=== PATIENT | male | born 1965 | race Caucasian/White ===

== ENCOUNTER 2017-08-24 14:47 | Inpatient (IN) | payer OTHER ==
--- NOTE | 2017-08-24 14:57 | PDOC ---
Rapid Medical Evaluation Chief Complaint: Urinary Catheter Problem Time Seen by Provider: 08/24/17 14:55 Medical Evaluation: Allergies Allergy/AdvReac Type Severity Reaction Status Date / Time No Known Allergies Allergy Verified 08/24/17 14:52 08/24/17 14:57 I have performed a brief in-person evaluation of this patient. The patient presents with a chief complaint of: abd pain and swelling in testicles x 1 week, no f/c/n/v. H/o alcoholic cirrhosis, ascites s/p last paracentesis 1 yr ago, varices, L inguinal hernia, PFO GI: Efrain PMD: Dr Nugent Pertinent physical exam findings:+ascites w/ diffuse swelling of scrotum I have ordered the following:labs The patient will proceed to the ED for further evaluation Discharge Disposition - Diagnosis Scrotum swelling Ascites Qualifiers: Ascites type: due to alcoholic hepatitis Qualified Code(s): K70.11 - Alcoholic hepatitis with ascites - Referrals - Patient Instructions - Post Discharge Activity
--- NOTE | 2017-08-24 16:09 | PDOC ---
History of Present Illness - History of Present Illness Initial Comments: 08/24/17 15:59 50 yo M with h/o Etoh cirrhosis, dvt, ascites s/p parecentesis, esophageal varicies, patent foramen ovale, L inguinal hernia, presents with 1 month of increasing scrotal swelling, and abdominal swelling. Intermittent SOB, and Estrada. Patient reports last Etoh intake 1 month ago (1 beer). Previous U/S report ( 11/12) with small left hydrocele. Left inguinal hernia with herniating bowel loop as well as herniation of ascites through the left inguinal canal into the left scrotal sac. Both testicles appear essentially unremarkable with normal flow. Denies F/C, N/V, CP, SOB, diarrhea, constipation, BPR, urinary complaints, hematuria, weakness, lightheadedness, sensory changes. PMHx: as noted above ROS: as noted above SHx: Etoh intake 1 month ago. Denies tobacco use or IVDA. Dr. Patel <Jenaro Pal - Last Filed: 08/24/17 18:04> <Saumya Cornelius - Last Filed: 08/24/17 20:32> - General Chief Complaint: Edema Stated Complaint: fluid in scrotum Time Seen by Provider: 08/24/17 14:55 Past History - Past Medical History COPD: No Diabetes: No HTN: Yes Liver Disease: Yes (CIRRHOSIS) - Immunization History Immunization Up to Date: Yes - Suicide/Smoking/Psychosocial Hx Smoking Status: Yes Smoking History: Current every day smoker Have you smoked in the past 12 months: Yes Number of Cigarettes Smoked Daily: 10 Information on smoking cessation initiated: No 'Breaking Loose' booklet given: 07/31/11 Hx Alcohol Use: No Drug/Substance Use Hx: No Substance Use Type: Alcohol Hx Substance Use Treatment: No <Jenaro Pal - Last Filed: 08/24/17 18:04> <Saumya Cornelius - Last Filed: 08/24/17 20:32> - Past Medical History Allergies/Adverse Reactions: Allergies Allergy/AdvReac Type Severity Reaction Status Date / Time No Known Allergies Allergy Verified 08/24/17 14:52 Home Medications: Ambulatory Orders Furosemide 80 mg PO DAILY 08/24/17 Spironolactone 50 mg PO DAILY 08/24/17 Review of Systems - Review of Systems Comments:: 08/24/17 16:36 GENERAL/CONSTITUTIONAL: No fever or chills. No weakness. HEAD, EYES, EARS, NOSE AND THROAT: No change in vision. No ear pain or discharge. No sore throat. CARDIOVASCULAR: No chest pain or shortness of breath RESPIRATORY: No cough, wheezing, or hemoptysis. GASTROINTESTINAL: + Abdominal discomfort. No nausea, vomiting, diarrhea or constipation. GENITOURINARY: + Testicular swelling. No dysuria, frequency, or change in urination. MUSCULOSKELETAL: No joint or muscle swelling or pain. No neck or back pain. SKIN: No rash NEUROLOGIC: No headache, vertigo, loss of consciousness, or change in strength/ sensation. ENDOCRINE: No increased thirst. No abnormal weight change HEMATOLOGIC/LYMPHATIC: No anemia, easy bleeding, or history of blood clots. ALLERGIC/IMMUNOLOGIC: No hives or skin allergy. <Jenaro Pal - Last Filed: 08/24/17 18:04> *Physical Exam - Vital Signs Last Vital Signs Temp Pulse Resp BP Pulse Ox 98.6 F 85 18 103/72 99 08/24/17 14:52 08/24/17 14:52 08/24/17 14:52 08/24/17 14:52 08/24/17 15:29 - Physical Exam Comments: 08/24/17 16:36 GENERAL: Awake, alert, and fully oriented, in no acute distress HEAD: No signs of trauma, normocephalic, atraumatic EYES: + Scleral icterus. PERRLA, EOMI, conjunctiva clear ENT: Auricles normal inspection, hearing grossly normal, nares patent, oropharynx clear without exudates. Moist mucosa NECK: Normal ROM, supple, no lymphadenopathy, JVD, or masses LUNGS: No distress, speaks full sentences, clear to auscultation bilaterally HEART: Regular rate and rhythm, normal S1 and S2, no murmurs, rubs or gallops, peripheral pulses normal and equal bilaterally. ABDOMEN: + Fluid wave. Abdomen distended with ascites. Soft, nontender, normoactive bowel sounds. No guarding, no rebound. No masses : + Testicular edema.. EXTREMITIES : Normal inspection, Normal range of motion, no edema. No clubbing or cyanosis. SKIN: + Jaundice. Dry, normal turgor, no rashes or lesions noted <Jenaro Pal - Last Filed: 08/24/17 18:04> - Vital Signs Last Vital Signs Temp Pulse Resp BP Pulse Ox 97.1 F L 72 17 108/64 97 08/24/17 19:41 08/24/17 19:41 08/24/17 19:41 08/24/17 19:41 08/24/17 19:41 <Saumya Cornelius - Last Filed: 08/24/17 20:32> Procedures - Additional Procedures Progress: 08/24/17 18:03 Paracentesis performed under ultrasound guidance. Area prepped with betadine. Withdrew 60 cc fluid cloudy slightly blood tinged. No complications. <Jenaro Pal - Last Filed: 08/24/17 18:04> ED Treatment Course - LABORATORY CBC & Chemistry Diagram: 08/24/17 16:46 08/24/17 16:46 <Jenaro Pal - Last Filed: 08/24/17 18:04> - LABORATORY CBC & Chemistry Diagram: 08/24/17 16:46 08/24/17 16:46 - ADDITIONAL ORDERS Additional order review: Laboratory Results 08/24/17 08/24/17 08/24/17 18:02 16:46 16:46 PT with INR INR Sodium 134 L Potassium 2.4 L* D Chloride 94 L D Carbon Dioxide 29 D Anion Gap 11 BUN 10 D Creatinine 0.7 Creat Clearance w eGFR > 60 Random Glucose 81 D Calcium 8.2 L Total Bilirubin 5.0 H D AST 45 H ALT 27 Alkaline Phosphatase 96 D Creatine Kinase Troponin I B-Natriuretic Peptide Total Protein 6.3 L Albumin 2.5 L Lipase 215 Peritoneal WBC 142 Peritoneal RBC 4223 Peritoneal Tot Protein 2 Peritoneal Albumin 1 Peritoneal LDH 121 Peritoneal Glucose 104 Peritoneal Amylase 18 08/24/17 08/24/17 16:46 16:46 PT with INR 18.00 H INR 1.59 H Sodium Potassium Chloride Carbon Dioxide Anion Gap BUN Creatinine Creat Clearance w eGFR Random Glucose Calcium Total Bilirubin AST ALT Alkaline Phosphatase Creatine Kinase 124 Troponin I < 0.02 D B-Natriuretic Peptide 136.05 H Total Protein Albumin Lipase Peritoneal WBC Peritoneal RBC Peritoneal Tot Protein Peritoneal Albumin Peritoneal LDH Peritoneal Glucose Peritoneal Amylase 08/24/17 16:46 RBC 2.77 L D MCV 113.8 H MCHC 35.9 RDW 15.2 MPV 9.6 Neutrophils % 60.5 Lymphocytes % 21.4 Monocytes % 16.6 H Eosinophils % 1.2 Basophils % 0.3 - Medications Given in the ED: ED Medications Discontinued Medications Generic Name Dose Route Start Last Admin Trade Name Herb PRN Reason Stop Dose Admin Ceftriaxone Sodium 1 gm/ 100 mls @ 200 mls/hr 08/24/17 19:14 08/24/17 20:09 Dextrose IVPB 08/24/17 19:43 200 mls/hr ONCE ONE Administration Protocol Potassium Chloride 40 meq 08/24/17 18:28 08/24/17 19:33 K-Dur - PO 08/24/17 18:29 40 meq ONCE ONE Administration Potassium Chloride 40 meq 08/24/17 19:03 08/24/17 20:10 K-Dur - PO 08/24/17 19:04 40 meq ONCE ONE Administration <Saumya Cornelius - Last Filed: 08/24/17 20:32> Medical Decision Making - Medical Decision Making 08/24/17 16:39 50 yo M with h/o Etoh cirrhosis, dvt, ascites s/p parecentesis, esophageal varicies, patent foramen ovale, L inguinal hernia, presents with 1 month of increasing scrotal swelling, and abdominal swelling. VSS, A&OX3, AF. + Fluid wave, distension of abdomen, and rapid scrotal fluid re-expansion. Patient with ascitic fluid, with absent clinical evidence of SBP. Abdomen non tender, and patient w/out s/s of infection. Will evaluate for pancreatitis, and the need to diuresis with medication vs. paracentesis. ED Course: 08/24/17 18:04 Paracentesis performed under ultrasound guidance. Area prepped with betadine. Withdrew 60 cc fluid cloudy slightly blood tinged. No complications. 08/24/17 18:06 K+2.4 EKG: NSR with low voltage criteria. Absent THOMAS, STD, or TWI. Nml interval and axis. <Jenaro Pal - Last Filed: 08/24/17 18:04> *DC/Admit/Observation/Transfer <Jenaro Pal - Last Filed: 08/24/17 18:04> - Discharge Dispostion Decision to Admit order: Yes <Saumya Cornelius - Last Filed: 08/24/17 20:32> Diagnosis at time of Disposition: Scrotum swelling Ascites Qualifiers: Ascites type: due to alcoholic hepatitis Qualified Code(s): K70.11 - Alcoholic hepatitis with ascites - Referrals Referrals: Mabel Cooper [Primary Care Provider] -
[2017-08-24 17:02] LABS: BASO % 0.3 % (0-2.0); EOS % 1.2 % (0-4.5); HEMATOCRIT 31.5 % (35.4-49); HEMOGLOBIN 11.3 GM/dL (11.7-16.9); LYMPH % 21.4 % (8-40); MCHC 35.9 g/dl (32.0-35.9); MEAN CELL VOLUME 113.8 fl (80-96); MEAN PLT VOLUME 9.6 fl (7.5-11.1); MONO % 16.6 % (3.8-10.2); NEUT % 60.5 % (42.8-82.8); PLATELET COUNT 100 K/MM3 (134-434); RBC 2.77 M/mm3 (4.00-5.60); RDW 15.2 % (11.9-15.9); WHITE BLOOD COUNT 4.4 K/mm3 (4.0-10.0)
--- NOTE | 2017-08-24 17:09 | PDOC ---
Attending Attestation - Medical Decision Making 08/24/17 20:11 Laboratory Tests 08/24/17 08/24/17 08/24/17 16:46 16:46 16:46 WBC 4.4 Hgb 11.3 L D Hct 31.5 L D Plt Count 100 L Sodium 134 L Potassium 2.4 L* D Chloride 94 L D Carbon Dioxide 29 D BUN 10 D Creatinine 0.7 Total Protein 6.3 L Albumin 2.5 L Lipase 215 Peritoneal WBC Peritoneal RBC Peritoneal Tot Protein Peritoneal LDH Peritoneal Glucose Peritoneal Amylase 08/24/17 18:02 WBC Hgb Hct Plt Count Sodium Potassium Chloride Carbon Dioxide BUN Creatinine Total Protein Albumin Lipase Peritoneal WBC 142 Peritoneal RBC 4223 Peritoneal Tot Protein 2 Peritoneal LDH 121 Peritoneal Glucose 104 Peritoneal Amylase 18 Ascites WBC 142, not c/w SBP at this time. Gram stain and culture pending Hypokalemia w/ Long QTc (491). Admit hypokalemia treatment and diuresis. <Saumya Cornelius - Last Filed: 08/24/17 20:11> - Resident Resident Name: Jenaro Pal - ED Attending Attestation I have performed the following: I have examined & evaluated the patient, The case was reviewed & discussed with the resident, I agree w/resident's findings & plan, Exceptions are as noted - HPI HPI: 08/24/17 17:00 52y M hx of ascites seconary to etoh cirhoosis, cad, dvt, chronic scrotal hernia presents with 1 month of increased abdominal scrotal swelling (no paracentesis x 1 year)no vomiting, fever/chills, diarrhea, constipation, cp, sob. +abd distension, +fluid wave +jaundice testicular swelling - Physicial Exam PE: 08/31/17 15:23 see above - Medical Decision Making 08/24/17 17:57 performed diagnostic tap of the pts ascitic fluid, it is noted to be cloudy, will send cell count/chem along with cultures <Roel Mclean - Last Filed: 08/31/17 15:23>
[2017-08-24 17:10] LABS: ADD RBC MORPHOLOGY YES; MCH 40.8 pg (25.7-33.7)
[2017-08-24 17:11] LABS: INR 1.59 (0.82-1.09)
[2017-08-24 17:39] LABS: ALBUMIN 2.5 g/dl (3.4-5.0); ANION GAP 11 (8-16); BLOOD UREA NITROGEN 10 mg/dL (7-18); CALCIUM 8.2 mg/dL (8.5-10.1); CHLORIDE 94 mmol/L (98-107); CO2 29 mmol/L (21-32); GLUCOSE,RANDOM 81 mg/dL (74-106); SODIUM 134 mmol/L (136-145)
[2017-08-24 17:42] LABS: N-TERMINAL BNP 136.05 pg/ml (5-125)
[2017-08-24 17:43] LABS: ALK PHOS 96 U/L (45-117); CREATININE 0.7 mg/dL (0.7-1.3); SGOT/AST 45 U/L (15-37); SGPT/ALT 27 U/L (12-78); TOT PROT 6.3 g/dl (6.4-8.2)
[2017-08-24 17:52] LABS: POTASSIUM 2.4 mmol/L (3.5-5.1)
[2017-08-24] MEDS ORDERED: POTASSIUM CHLORIDE TABS 20 MEQ TABLET.ER (FP) PO ONE ×3 (18:28→19:09)
[2017-08-24 18:51] LABS: ANISOCYTOSIS 1+; MACROCYTOSIS 2+; PLATELET ESTIMATE SLT DECREASE
[2017-08-24] MEDS ORDERED: CEFTRIAXONE 1 GM in DEXTROSE 5%-WATER - 100 ML IVPB ONE (19:14)
--- NOTE | 2017-08-24 19:16 | PDOC ---
*Physical Exam - Vital Signs Last Vital Signs Temp Pulse Resp BP Pulse Ox 98.6 F 85 18 103/72 99 08/24/17 14:52 08/24/17 14:52 08/24/17 14:52 08/24/17 14:52 08/24/17 15:29 ED Treatment Course - LABORATORY CBC & Chemistry Diagram: 08/24/17 16:46 08/24/17 16:46 - ADDITIONAL ORDERS Additional order review: Laboratory Results 08/24/17 08/24/17 08/24/17 16:46 16:46 16:46 PT with INR 18.00 H INR 1.59 H Sodium 134 L Potassium 2.4 L* D Chloride 94 L D Carbon Dioxide 29 D Anion Gap 11 BUN 10 D Creatinine 0.7 Creat Clearance w eGFR > 60 Random Glucose 81 D Calcium 8.2 L Total Bilirubin 5.0 H D AST 45 H ALT 27 Alkaline Phosphatase 96 D Creatine Kinase Troponin I B-Natriuretic Peptide Total Protein 6.3 L Albumin 2.5 L Lipase 215 08/24/17 16:46 PT with INR INR Sodium Potassium Chloride Carbon Dioxide Anion Gap BUN Creatinine Creat Clearance w eGFR Random Glucose Calcium Total Bilirubin AST ALT Alkaline Phosphatase Creatine Kinase 124 Troponin I < 0.02 D B-Natriuretic Peptide 136.05 H Total Protein Albumin Lipase 08/24/17 16:46 RBC 2.77 L D MCV 113.8 H MCHC 35.9 RDW 15.2 MPV 9.6 Neutrophils % 60.5 Lymphocytes % 21.4 Monocytes % 16.6 H Eosinophils % 1.2 Basophils % 0.3 Medical Decision Making - Medical Decision Making 52 yo presenting with worsening ascites, scrotal edema and hypokalemia. Labs notable for hypokalemia of 2.4. Pt received diag para during visit. Awaiting fluid studies for r/o SBP. Will likely admit to hospital for electrolyte abnormalities and possible SBP. 08/24/17 19:13 Ascitic fluid negative for SBP. Admitted to hospitalist group. Sign-out provided to Dr. Ventura. 08/24/17 21:35 *DC/Admit/Observation/Transfer Diagnosis at time of Disposition: Scrotum swelling Ascites Qualifiers: Ascites type: due to alcoholic hepatitis Qualified Code(s): K70.11 - Alcoholic hepatitis with ascites - Referrals - Patient Instructions - Post Discharge Activity
[2017-08-24 19:25] LABS: TOTAL PROTEIN,PERITONEAL FLUID 2 gm/dL
[2017-08-24 19:46] LABS: PERITONEAL RBC 4223 /mm3
[2017-08-24] MEDS ORDERED: CEFTRIAXONE 1 GM/50 ML BAG ONE (19:46)
[2017-08-24] MEDS ORDERED: LISINOPRIL 10 MG TABLET (FP) PO SCH (21:00)
[2017-08-24 21:54] LABS: PERITONEAL FLUID LYMPHOCYTE 22 %; PERITONEAL FLUID MESOTHELIAL 13 %; PERITONEAL FLUID MONOCYTE 12 %; PERITONEAL FLUID NEUTROPHIL 6 %
[2017-08-24 21:55] LABS: PERITONEAL FLUID MACROPHAGE 47 %
--- NOTE | 2017-08-24 23:44 | HP ---
CHIEF COMPLAINT: Large Scrotum PCP: Dr. Mabel Cooper HISTORY OF PRESENT ILLNESS: Patient is a 50 year old male with a PMHx of Alcohol abuse and cirrhosis, Ascites, esophageal varices, PFO, who reports a one week history of increasing pain and swelling of the scrotum associated with abdominal swelling. According to patient, he never had scrotal swelling before and this is the first time it happened. However, review of medical records reveal similar symptoms in the past. Patient denies any recent alcohol use and states that he only drinks beer with the last drink 4 months ago. Patient states that he has been experiencing shortness of breath when walking due to his abdominal swelling. Otherwise, patient denies chest pain, palpitations, dizziness, weakness, headaches, fever, chills, nausea, vomiting, dysuria, hematuria, frequency, urgency. ER course was notable for: (1) Diagnostic paracentesis with no SBP (2) Hypokalemia (3) Recent Travel: Denies PAST MEDICAL HISTORY: Alcohol abuse and cirrhosis, ascites, esophageal varices , PFO PAST SURGICAL HISTORY: Denies Social History: Smoking: Smokes 4 cigarettes a day Alcohol: States he only rinks beer with last alcohol intake 4 months ago Drugs: Denies Family History: Non-contributory Allergies: No Known Allergies Allergy (Verified 08/24/17 14:52) HOME MEDICATIONS: Home Medications Medication Instructions Recorded Furosemide 80 mg PO DAILY 08/24/17 Spironolactone 50 mg PO DAILY 08/24/17 REVIEW OF SYSTEMS CONSTITUTIONAL: Absent: fever, chills, diaphoresis, generalized weakness, malaise, loss of appetite, weight change HEENT: Absent: rhinorrhea, nasal congestion, throat pain, throat swelling, difficulty swallowing, mouth swelling, ear pain, eye pain, visual changes CARDIOVASCULAR: Absent: chest pain, syncope, palpitations, irregular heart rate, lightheadedness , peripheral edema RESPIRATORY: Absent: cough, shortness of breath, dyspnea with exertion, orthopnea, wheezing, stridor, hemoptysis GASTROINTESTINAL: abdominal distension Absent: abdominal pain, nausea, vomiting, diarrhea, constipation, melena, hematochezia GENITOURINARY: Scrotal Edema Absent: dysuria, frequency, urgency, hesitancy, hematuria, flank pain, genital pain MUSCULOSKELETAL: Absent: myalgia, arthralgia, joint swelling, back pain, neck pain SKIN: Absent: rash, itching, pallor HEMATOLOGIC/IMMUNOLOGIC: Absent: easy bleeding, easy bruising, lymphadenopathy, frequent infections ENDOCRINE: Absent: unexplained weight gain, unexplained weight loss, heat intolerance, cold intolerance NEUROLOGIC: Absent: headache, focal weakness or paresthesias, dizziness, unsteady gait, seizure, mental status changes, bladder or bowel incontinence PSYCHIATRIC: Absent: anxiety, depression, suicidal or homicidal ideation, hallucinations. PHYSICAL EXAMINATION Vital Signs - 24 hr 08/24/17 08/24/17 08/24/17 14:52 15:29 19:41 Temperature 98.6 F 97.1 F L Pulse Rate 85 72 Pulse Rate [ 72 Left Radial] Respiratory 18 17 Rate Blood Pressure 103/72 Blood Pressure 108/64 [Left Arm] O2 Sat by Pulse 99 99 97 Oximetry (%) 08/24/17 22:25 Temperature Pulse Rate Pulse Rate [ 74 Left Radial] Respiratory 17 Rate Blood Pressure Blood Pressure 110/66 [Left Arm] O2 Sat by Pulse 98 Oximetry (%) GENERAL: Awake, alert, and fully oriented, in no acute distress. HEAD: Normal with no signs of trauma. EYES: Pupils equal, round and reactive to light, extraocular movements intact, sclera icteric. ENT: Moist mucous membranes. NECK: No JVD LUNGS: Breath sounds equal, clear to auscultation bilaterally. No wheezes, and no crackles. No accessory muscle use. HEART: Regular rate and rhythm, normal S1 and S2 without murmur, rub or gallop. ABDOMEN: Soft, nontender, grossly distended with mild striae in periumbilical, normoactive bowel sounds, (+) fluid wave MUSCULOSKELETAL: No CVA tenderness. EXTREMITIES: No calf tenderness. No peripheral edema. NEUROLOGICAL: Cranial nerves II-XII intact. Normal speech. Motor strength 5/5 bilaterally PSYCHIATRIC: Cooperative. Good eye contact. Appropriate mood and affect. SKIN: Warm, dry, Jaundice Laboratory Results - last 24 hr CBC, BMP 08/24/17 16:46 08/24/17 16:46 Laboratory Tests 08/24/17 08/24/17 08/24/17 16:46 16:46 18:02 INR 1.59 H Total Bilirubin 5.0 H D AST 45 H ALT 27 Total Protein 6.3 L Albumin 2.5 L Peritoneal WBC 142 Peritoneal RBC 4223 Periton Neutrophils 6 Periton Lymphocytes 22 Peritoneal LDH 121 Peritoneal Glucose 104 Peritoneal Amylase 18 ASSESSMENT/PLAN: Patient is a 52 year old male who presents for scrotal swelling and found to have ascites. Patient admitted for further monitoring and management. Scrotal Edema -Likely secondary to alcohol Liver cirrhosis and portal hypertension -Had Diagnostic paracentesis in ED with no SBP -Will need diuresis and therapeutic paracentesis Ascites Secondary to Alcoholic Liver Cirrhosis -Shifting dull with abdominal and scrotal edema -Diagnostic paracentesis revealed no SBP -SAAG 1.5 consistent with Portal HTN -MELD score 21 -AFP tumor marker ordered -Will need to perform therapeutic paracentesis to minimize ascitic fluid volume and decrease peripheral edema avoiding volume depletion. IR consult placed -Will need to be diuresed with with Lasix once Potassium is stable -Continue with Aldactone 50mg PO daily -Sodium restriction to 88mmol/day (2000mg/day) -Avoid NSAID use -Patient educated on completely abstaining from alcohol consumption -GI consult placed Hypokalemia -Secondary to poor oral intake and alcohol abuse -40 meq PO of Potassium chloride given in ED. An additional 80 meq of sodium given with labs repeated in the morning -Repeat EKG in the morning Alcohol Abuse -CIWA 0 -Patient in no acute withdrawals -Ativan 2mg PRN if patient has withdrawals. Avoid Librium as patient has liver cirrhosis -Thiamine 100mg PO daily -Monitor for any withdrawal symptoms F/E/N -On no fluids -hypokalemia. Replete and repeat -Sodium controlled diet Prophylaxis -Mod risk. Heparin 5000 units sq TID Disposition -Full code -Will need therapeutic IR directed paracentesis Visit type - Emergency Visit Emergency Visit: Yes ED Registration Date: 08/24/17 Care time: The patient presented to the Emergency Department on the above date and was hospitalized for further evaluation of their emergent condition. - New Patient This patient is new to me today: Yes Date on this admission: 08/24/17 - Critical Care Critical Care patient: No Hospitalist Screening - Colonoscopy Questionnaire Colonoscopy Questionnaire: Colonoscopy Questionnaire - Patient: 50 - 75 years old and never had a screening colonoscopy: Unknown History of colon or rectal polyps, or CA: Unknown History of IBD, Crohn's disease or UC: Unknown History of abdominal radiation therapy as a child: Unknown - Relative: 1 with colon or rectal CA, or polyps at age 60 or younger: Unknown Colon or rectal CA diagnosed at age 45 or younger: Unknown Multiple relatives with colon or rectal CA: Unknown - Outcome: Screening Result: Negative Screen
[2017-08-24] MEDS: POTASSIUM CHLORIDE TABS 20 MEQ TABLET.ER (FP) PO SCH (23:51)
[2017-08-24] MEDS: HEPARIN NA (PORCINE) 5,000 UNITS/ML 1ML VIAL SQ SCH (23:51)
[2017-08-25] MEDS ORDERED: POTASSIUM CHLORIDE TABS 20 MEQ TABLET.ER (FP) PO ONE (02:00)
--- NOTE | 2017-08-25 05:23 | PN ---
Teaching Attending Note Name of Resident: Susie Miller ATTENDING PHYSICIAN STATEMENT I saw and evaluated the patient. I reviewed the resident's note and discussed the case with the resident. I agree with the resident's findings and plan as documented. SUBJECTIVE: OBJECTIVE: ASSESSMENT AND PLAN: patient is admitted for decompensated liver failure, associated with worsening ascetic fluid accumulation and scrotal edema and hypokalemia plan: hold furosemide replenish K+ repeat lab after the patient receives 3 doses of 40meq of K+ consider pericentisis for the patient give albumin if necessary GI consult c/w spironolactone 25mg daily
[2017-08-25] MEDS ORDERED: MAGNESIUM SULF 50% (8.12 MEQ/2 ML-1 GM VIAL) IVPB ONE (05:48)
[2017-08-25] MEDS: HEPARIN NA (PORCINE) 5,000 UNITS/ML 1ML VIAL SQ SCH ×3 (05:55→21:02)
[2017-08-25 07:44] LABS: ALBUMIN 2.2 g/dl (3.4-5.0); ANION GAP 9 (8-16); BILIRUBIN,TOTAL 3.6 mg/dL (0.2-1.0); BLOOD UREA NITROGEN 10 mg/dL (7-18); CHLORIDE 98 mmol/L (98-107); CO2 29 mmol/L (21-32); CREATININE 0.6 mg/dL (0.7-1.3); GLUCOSE,RANDOM 85 mg/dL (74-106); MAGNESIUM 1.9 mg/dL (1.8-2.4); PHOSPHOROUS 3.5 mg/dL (2.5-4.9); SGPT/ALT 22 U/L (12-78); SODIUM 136 mmol/L (136-145)
[2017-08-25 07:48] LABS: ALK PHOS 103 U/L (45-117); SGOT/AST 35 U/L (15-37); TOT PROT 5.8 g/dl (6.4-8.2)
[2017-08-25 07:50] LABS: INR 1.57 (0.82-1.09); PROTHROMBIN TIME (PATIENT) 17.7 SEC (9.7-13.0)
[2017-08-25 07:53] LABS: ACTIVATED PTT 37.1 SECONDS (26.9-34.4)
--- NOTE | 2017-08-25 08:45 | EKG ---
Test Reason : Blood Pressure : / mmHG Vent. Rate : 077 BPM Atrial Rate : 077 BPM P-R Int : 136 ms QRS Dur : 090 ms QT Int : 434 ms P-R-T Axes : -11 -22 -41 degrees QTc Int : 491 ms POOR DATA QUALITY, INTERPRETATION MAY BE ADVERSELY AFFECTED NORMAL SINUS RHYTHM POSSIBLE ANTEROLATERAL INFARCT (CITED ON OR BEFORE 31-JUL-2011) ABNORMAL ECG WHEN COMPARED WITH ECG OF 05-FEB-2012 12:29, T WAVE INVERSION NOW EVIDENT IN INFERIOR LEADS NONSPECIFIC T WAVE ABNORMALITY NOW EVIDENT IN ANTEROLATERAL LEADS QT HAS LENGTHENED Confirmed by JOVI SCHAFER, JANETTE ([id number]) on 08/25/2017 8:45:04 AM Referred By: Confirmed By:JANETTE ESPANA MD
[2017-08-25] MEDS: SPIRONOLACTONE 25 MG TABLET (FP) PO SCH (09:59)
[2017-08-25] MEDS: THIAMINE HCL 100 MG TABLET (FP) PO SCH (10:00)
[2017-08-25] MEDS: POTASSIUM CHLORIDE TABS 20 MEQ TABLET.ER (FP) PO SCH (10:00)
[2017-08-25 10:03] LABS: URINE APPEARANCE CLEAR; URINE BLOOD NEGATIVE (NEGATIVE); URINE COLOR AMBER; URINE GLUCOSE (UA) NEGATIVE (NEGATIVE); URINE KETONE NEGATIVE (NEGATIVE); URINE LEUK ESTERASE NEGATIVE (NEGATIVE); URINE NITRITE NEGATIVE (NEGATIVE); URINE PROTEIN NEGATIVE (NEGATIVE); URINE UROBILINOGEN 4.0 E.U/dl mg/dL (0.2-1.0)
--- NOTE | 2017-08-25 12:23 | PN ---
Progress Note (short form) - Note Progress Note: c/o scrotal pain and edema. progressively worsening over the past week. was just was [facility] a year ago where he had a large volume paracentesis but is unable to comment on other treatment he may have had. Has not taken his medication for several weeks. last saw PMD 6 months ago and unclear last time he saw guide plant. denies Cp, SOB, fever, chills, N/V/C/D no difficulties urinating with enlarged scrotum Current Medications Generic Name Dose Route Start Last Admin Trade Name Herb PRN Reason Stop Dose Admin Heparin Sodium (Porcine) 5,000 unit 08/24/17 22:00 08/25/17 05:55 Heparin - SQ 5,000 unit TID ERIC Administration Potassium Chloride 40 meq 08/24/17 21:30 08/25/17 10:00 K-Dur - PO 40 meq DAILY ERIC Administration Spironolactone 50 mg 08/25/17 10:00 08/25/17 09:59 Aldactone - PO Not Given DAILY ERIC Thiamine HCl 100 mg 08/25/17 10:00 08/25/17 10:00 Vitamin B1 - PO 100 mg DAILY ERIC Administration Last Vital Signs Temp Pulse Resp BP Pulse Ox 98 F 75 20 92/56 95 08/25/17 09:56 08/25/17 09:56 08/25/17 09:56 08/25/17 09:56 08/25/17 09:00 General NAD, HEENT anicteric CV S1 S2 RRR no murmur/rub/gallop Lungs CTA B/L no wheezing/rales/rhonchi Abdomen soft distended +fluid shift no hemagioma Extremities no pedal edema, no asterixis groin distended scrotum. soft not tender CBCD WBC 4.4 K/mm3 (4.0-10.0) 08/24/17 16:46 RBC 2.77 M/mm3 (4.00-5.60) L D 08/24/17 16:46 Hgb 11.3 GM/dL (11.7-16.9) L D 08/24/17 16:46 Hct 31.5 % (35.4-49) L D 08/24/17 16:46 MCV 113.8 fl (80-96) H 08/24/17 16:46 MCHC 35.9 g/dl (32.0-35.9) 08/24/17 16:46 RDW 15.2 % (11.9-15.9) 08/24/17 16:46 Plt Count 100 K/MM3 (134-434) L 08/24/17 16:46 MPV 9.6 fl (7.5-11.1) 08/24/17 16:46 CMP Sodium 135 mmol/L (136-145) L 08/25/17 12:55 Potassium 3.4 mmol/L (3.5-5.1) L 08/25/17 12:55 Chloride 100 mmol/L (98-107) 08/25/17 12:55 Carbon Dioxide 28 mmol/L (21-32) 08/25/17 12:55 Anion Gap 7 (8-16) L 08/25/17 12:55 BUN 10 mg/dL (7-18) 08/25/17 12:55 Creatinine 0.6 mg/dL (0.7-1.3) L 08/25/17 12:55 Creat Clearance w eGFR > 60 (>60) 08/25/17 06:10 Calcium 8.0 mg/dL (8.5-10.1) L 08/25/17 12:55 Total Bilirubin 3.6 mg/dL (0.2-1.0) H D 08/25/17 06:10 AST 35 U/L (15-37) D 08/25/17 06:10 ALT 22 U/L (12-78) 08/25/17 06:10 Alkaline Phosphatase 103 U/L (45-117) 08/25/17 06:10 Total Protein 5.8 g/dl (6.4-8.2) L 08/25/17 06:10 Albumin 2.2 g/dl (3.4-5.0) L 08/25/17 06:10 A/P 52yo M with PMH ETOH cirrhosis, esophageal varices and PFO presented to the ER with scrotal and leg swelling 1. Decompensated ETOH cirrhosis with ascites- MELD 17. Disc function score 25. s /p diagnostic paracentesis done in the ER. negative for SBP. difficulty in diuresing due to hypotension. will call IR for paracentesis. will repeat K level. if improved will give lasix 40mg IVP x1. will increase spiroloactone to 100mg. elevate scrotum, reverse trendelenberg. daily weights. would benefit from TIPS procedure however not a candidate due to chronic ETOH use. GI on board 2. Hypokalemia- improved. cont to replete as needed while on diuresis 3. hyponatremia- due to cirrhosis and volume overload. imporved 4. Bilirubinemia- due to cirrhosis. does not apper icteric. will obtain recent lab work. trend 5. Continuous ETOH dependence- no signs of withdrawal here. states last drink was almost 1 month ago. cont thiamine/folate/MVI. monitor for withdrawal symptoms 6. esophageal varices 7. PFO 8. DVT ppx- hep sq Visit type - Emergency Visit Emergency Visit: Yes ED Registration Date: 08/24/17 Care time: The patient presented to the Emergency Department on the above date and was hospitalized for further evaluation of their emergent condition. - New Patient This patient is new to me today: Yes Date on this admission: 08/25/17 - Critical Care Critical Care patient: No - Discharge Referral Referred to [facility] Med P.C.: No
[2017-08-25 13:52] LABS: ANION GAP 7 (8-16); BLOOD UREA NITROGEN 10 mg/dL (7-18); CHLORIDE 100 mmol/L (98-107); CO2 28 mmol/L (21-32); CREATININE 0.6 mg/dL (0.7-1.3); GLUCOSE,RANDOM 109 mg/dL (74-106); POTASSIUM 3.4 mmol/L (3.5-5.1); SODIUM 135 mmol/L (136-145)
[2017-08-25] MEDS ORDERED: SPIRONOLACTONE 25 MG TABLET (FP) PO ONE (14:00)
[2017-08-25] MEDS ORDERED: POTASSIUM CHLORIDE ORAL LIQUID 20 MEQ/15 ML PO ONE (14:45)
[2017-08-25] MEDS ORDERED: FUROSEMIDE 40 MG/4 ML INJECTABLE VIAL IVPUSH ONE (14:45)
--- NOTE | 2017-08-25 15:44 | CON.GI ---
Consult Consult Specialty:: GI: Dr. Connor covering for Dr. Love Referred by:: Hospital service Reason for Consultation:: Ascites, hepatic hydrocoele - History of Present Illness Chief Complaint: Scrotal swelling History of Present Illness: [facility] [employer] [id number]: 52 year old male with long standing history of suspected alcoholic cirrhosis with sequela of ascites. Was treated at [facility] in 2012, has been treated @ [facility] in the past and has been non compliant with medical therapy or follow-up. In old notes it says that at one point he may have been getting evaluated for a TIPS. He says that his PMD is Dr. Langston and that he saw him 6 months ago. He says that his consulting sales manager is Dr. Love and that he has not seen him in 6 months. He says that he used to follow with Dr. Pichardo, tranplant gas welder apprentice @ [facility] but has not seen him in 3 years. He still drinks alcohol and says that the last time was 4 months ago, when he had 4 beers. He was on diuretics but says that he stopped taking them regularly about 2.5 weeks ago. Currently, he describes 1-2 weeks of increasing abdominal girth and scrotal swelling. he denies abdominal pain. He underwent diagnostic paracentesis in the ER that failed to reveal SBP and SAAG was calculated at 1.5. He was admitted for symptomatic hypokalemia with EKG changes. He denies abdominal or scrotal pain. 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 it is unclear what ever occurred regarding the SVC thrombus. - History Source History Provided By: Patient Limitations to Obtaining History: No Limitations - Past Medical History Hepatobiliary: Yes: Cirrhosis (ETOH), Other (Acites, scrotal ascites) - Past Surgical History Past Surgical History: Yes: Hernia Repair (RIH repair) - Alcohol/Substance Use Hx Alcohol Use: Yes History of Substance Use: reports: None - Smoking History Smoking history: Current every day smoker Have you smoked in the past 12 months: Yes Aproximately how many cigarettes per day: 10 - Social History Usual Living Arrangement: With Spouse ADL: Independent Occupation: Job Counselor Place of : Other ([place]) Came to [place] (year[place] 1996 History of Recent Travel: No Home Medications - Allergies Allergies/Adverse Reactions: Allergies Allergy/AdvReac Type Severity Reaction Status Date / Time No Known Allergies Allergy Verified 08/24/17 14:52 - Home Medications Home Medications: Ambulatory Orders Furosemide 80 mg PO DAILY 08/24/17 Spironolactone 50 mg PO DAILY 08/24/17 Family Disease History - Family Disease History Family Disease History: Other: Grandparent (Maternal GM: BCA), Father ( 62 unclear cause), Mother ( 59 unclear cause), Brother (1, healthy), Daughter ( 1, healthy) Other Family History: No family history of liver disease Review of Systems - Review of Systems Constitutional: denies: Chills Cardiovascular: denies: Chest Pain Respiratory: denies: SOB Gastrointestinal: reports: Bloating. denies: Abdominal Pain Physical Exam-GI Vital Signs: Vital Signs Temperature 98.5 F 08/25/17 14:03 Pulse Rate 74 08/25/17 14:03 Respiratory Rate 20 08/25/17 09:56 Blood Pressure 134/54 08/25/17 14:03 O2 Sat by Pulse Oximetry (%) 95 08/25/17 09:00 Constitutional: Yes: Calm Eyes: No: Sclera Icterus Cardiovascular: Yes: Regular Rate and Rhythm, Murmur (systolic, RSB) Respiratory: Yes: CTA Bilaterally Gastrointestinal Inspection: Yes: Distention (softly distended). No: Scars ...Auscultate: Yes: Normoactive Bowel Sounds ...Palpate: Yes: Soft. No: Hepatomegaly, Tenderness ...Percussion: Yes: Fluid Wave Genitourinary: Yes: Scrotal Edema (Significant scrotal edema. they can easily be semi-decompressed of fluid with gentle pressure. Abdomen increases in abdominal girth when this is performed) Edema: No (No LE edema) Neurological: Yes: Alert, Oriented. No: [facility] Labs: CBC, BMP 08/24/17 16:46 08/25/17 12:55 INR, PTT INR 1.57 (0.82-1.09) H 08/25/17 06:10 Hepatic Panel Total Bilirubin 3.6 mg/dL (0.2-1.0) H D 08/25/17 06:10 AST 35 U/L (15-37) D 08/25/17 06:10 ALT 22 U/L (12-78) 08/25/17 06:10 Alkaline Phosphatase 103 U/L (45-117) 08/25/17 06:10 Albumin 2.2 g/dl (3.4-5.0) L 08/25/17 06:10 MELDNa: 18 Problem List - Problems (1) Ascites Assessment/Plan: W/ hepatic hydrocoele: Mr. Harmon is non-complaint. I discussed this with him and explained that continued alcohol consumption and non-complaince will likely lead to from complications of his liver disease Advise: Aldactone 100mg PO daily Lasix when able to add given hypokalemia allows Therapeutic paracentesis when able. Send fluid for cytology, AFB culture and smear. Should have screening for heptocellular carcinoma Q 6 months with US/AFP Can obtain contrast imaging of the liver: ie Triple phase CT scan of the abdomen with and without IV contrast for baseline eval of liver and portovenous system. Evaluation of ? SVC thrombus history per primary team Daily weights I's and O's 2g low Na diet When acute issues are resolved, patient should be transferred to [facility] ie: Dr. Pichardo / Dr. Aguilar. 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 Code(s): R18.8 - OTHER ASCITES Qualifiers: Ascites type: due to alcoholic hepatitis Qualified Code(s): K70.11 - Alcoholic hepatitis with ascites
--- NOTE | 2017-08-25 17:34 | EKG ---
Test Reason : Blood Pressure : / mmHG Vent. Rate : 075 BPM Atrial Rate : 075 BPM P-R Int : 126 ms QRS Dur : 084 ms QT Int : 430 ms P-R-T Axes : -76 -07 -23 degrees QTc Int : 480 ms UNUSUAL P AXIS AND SHORT MS, PROBABLE JUNCTIONAL RHYTHM WITH PREMATURE SUPRAVENTRICULAR COMPLEXES PROLONGED QT ABNORMAL ECG WHEN COMPARED WITH ECG OF 24-AUG-2017 17:27, JUNCTIONAL RHYTHM HAS REPLACED SINUS RHYTHM NONSPECIFIC T WAVE ABNORMALITY NO LONGER EVIDENT IN ANTERIOR LEADS Confirmed by JANETTE ESPANA MD ([id number]) on 08/25/2017 5:33:46 PM Referred By: Leonardo DE LUNA Confirmed By:JANETTE ESPANA MD
[2017-08-26] MEDS: HEPARIN NA (PORCINE) 5,000 UNITS/ML 1ML VIAL SQ SCH ×3 (05:51→21:46)
[2017-08-26 07:40] LABS: HEMATOCRIT 31.2 % (35.4-49); HEMOGLOBIN 11.2 GM/dL (11.7-16.9); MCHC 35.8 g/dl (32.0-35.9); MEAN CELL VOLUME 114.6 fl (80-96); MEAN PLT VOLUME 9.9 fl (7.5-11.1); PLATELET COUNT 83 K/MM3 (134-434); RBC 2.72 M/mm3 (4.00-5.60); RDW 14.5 % (11.9-15.9); WHITE BLOOD COUNT 3.6 K/mm3 (4.0-10.0)
[2017-08-26 07:44] LABS: MCH 41.1 pg (25.7-33.7)
[2017-08-26 08:20] LABS: ALBUMIN 2.1 g/dl (3.4-5.0); ALK PHOS 88 U/L (45-117); ANION GAP 7 (8-16); BILIRUBIN,TOTAL 4.2 mg/dL (0.2-1.0); BLOOD UREA NITROGEN 10 mg/dL (7-18); CHLORIDE 100 mmol/L (98-107); CO2 28 mmol/L (21-32); CREATININE 0.6 mg/dL (0.7-1.3); GLUCOSE,RANDOM 94 mg/dL (74-106); POTASSIUM 3.4 mmol/L (3.5-5.1); SGOT/AST 31 U/L (15-37); SGPT/ALT 20 U/L (12-78); SODIUM 135 mmol/L (136-145); TOT PROT 5.9 g/dl (6.4-8.2)
[2017-08-26] MEDS: MULTIVITAMINS (DAILY MVI) TABLET (FP) PO SCH (11:11)
[2017-08-26] MEDS: THIAMINE HCL 100 MG TABLET (FP) PO SCH (11:11)
[2017-08-26] MEDS: POTASSIUM CHLORIDE TABS 20 MEQ TABLET.ER (FP) PO SCH (11:11)
--- NOTE | 2017-08-26 11:30 | PN ---
Progress Note (short form) - Note Progress Note: says scrotal pain has improved but swelling not much improved. denies Cp, SOB, fever, chills, N/V/C/D no difficulties urinating with enlarged scrotum Current Medications Generic Name Dose Route Start Last Admin Trade Name Herb PRN Reason Stop Dose Admin Heparin Sodium (Porcine) 5,000 unit 08/24/17 22:00 08/26/17 05:51 Heparin - SQ 5,000 unit TID ERIC Administration Multivitamins/Minerals/Vitamin C 1 tab 08/26/17 10:00 08/26/17 11:11 Tab-A-Vit - PO 1 tab DAILY ERIC Administration Potassium Chloride 40 meq 08/24/17 21:30 08/26/17 11:11 K-Dur - PO 40 meq DAILY ERIC Administration Spironolactone 50 mg 08/25/17 10:00 08/25/17 09:59 Aldactone - PO Not Given DAILY ERIC Thiamine HCl 100 mg 08/25/17 10:00 08/26/17 11:11 Vitamin B1 - PO 100 mg DAILY ERIC Administration Last Vital Signs Temp Pulse Resp BP Pulse Ox 98.6 F 70 18 97/51 95 08/26/17 05:00 08/26/17 05:00 08/26/17 05:00 08/26/17 05:00 08/25/17 20:31 Intake & Output 08/23/17 08/24/17 08/25/17 08/26/17 23:59 23:59 23:59 23:59 Intake Total 100 800 Output Total 2100 Balance 100 -1300 Weight 163 lb 167 lb 6.4 oz General NAD, HEENT anicteric CV S1 S2 RRR no murmur/rub/gallop Lungs CTA B/L no wheezing/rales/rhonchi Abdomen soft distended +fluid shift no hemagioma Extremities no pedal edema, no asterixis groin distended scrotum. soft not tender CBCD WBC 3.6 K/mm3 (4.0-10.0) L 08/26/17 06:30 RBC 2.72 M/mm3 (4.00-5.60) L 08/26/17 06:30 Hgb 11.2 GM/dL (11.7-16.9) L 08/26/17 06:30 Hct 31.2 % (35.4-49) L 08/26/17 06:30 MCV 114.6 fl (80-96) H 08/26/17 06:30 MCHC 35.8 g/dl (32.0-35.9) 08/26/17 06:30 RDW 14.5 % (11.9-15.9) 08/26/17 06:30 Plt Count 83 K/MM3 (134-434) L 08/26/17 06:30 MPV 9.9 fl (7.5-11.1) 08/26/17 06:30 CMP Sodium 135 mmol/L (136-145) L 08/26/17 06:30 Potassium 3.4 mmol/L (3.5-5.1) L 08/26/17 06:30 Chloride 100 mmol/L (98-107) 08/26/17 06:30 Carbon Dioxide 28 mmol/L (21-32) 08/26/17 06:30 Anion Gap 7 (8-16) L 08/26/17 06:30 BUN 10 mg/dL (7-18) 08/26/17 06:30 Creatinine 0.6 mg/dL (0.7-1.3) L 08/26/17 06:30 Creat Clearance w eGFR > 60 (>60) 08/26/17 06:30 Calcium 8.0 mg/dL (8.5-10.1) L 08/26/17 06:30 Total Bilirubin 4.2 mg/dL (0.2-1.0) H 08/26/17 06:30 AST 31 U/L (15-37) 08/26/17 06:30 ALT 20 U/L (12-78) 08/26/17 06:30 Alkaline Phosphatase 88 U/L (45-117) 08/26/17 06:30 Total Protein 5.9 g/dl (6.4-8.2) L 08/26/17 06:30 Albumin 2.1 g/dl (3.4-5.0) L 08/26/17 06:30 A/P 52yo M with PMH ETOH cirrhosis, esophageal varices and PFO presented to the ER with scrotal and leg swelling 1. Decompensated ETOH cirrhosis with ascites- MELD 17. Disc function score 25. s /p diagnostic paracentesis done in the ER. negative for SBP. difficulty in diuresing due to hypotension. will attempt to give lasix if BP will tolerate. cont aldactone 100mg. plan for large volume paracentesis when IR is available. elevate scrotum, reverse trendelenberg. daily weights. would benefit from TIPS procedure however not a candidate due to chronic ETOH use. GI on board 2. Hypokalemia- stable. no events on tele. will give Kcl 40meq po 3. hyponatremia- due to cirrhosis and volume overload. imporved 4. Bilirubinemia- due to cirrhosis. does not apper icteric. awaiting for medical records from [facility] 5. Continuous ETOH dependence- no signs of withdrawal here. states last drink was almost 1 month ago. cont thiamine/folate/MVI. monitor for withdrawal symptoms 6. esophageal varices 7. PFO 8. DVT ppx- hep sq 9. can d/c cardiac monitoring Visit type - Emergency Visit Emergency Visit: Yes ED Registration Date: 08/24/17 Care time: The patient presented to the Emergency Department on the above date and was hospitalized for further evaluation of their emergent condition. - New Patient This patient is new to me today: No - Critical Care Critical Care patient: No - Discharge Referral Referred to [facility] Med P.C.: No
--- NOTE | 2017-08-26 11:59 | PN ---
GI Progress Note Subjective: No acute events denies abdominal or scrotal pain - Objective Vital Signs: Vital Signs Temperature 98.6 F 08/26/17 05:00 Pulse Rate 70 08/26/17 05:00 Respiratory Rate 18 08/26/17 05:00 Blood Pressure 97/51 08/26/17 05:00 O2 Sat by Pulse Oximetry (%) 95 08/25/17 20:31 Constitutional: Calm Eyes: No: Sclera Icterus Respiratory: Yes: Diminished Gastrointestinal Inspection: Yes: Distention, Hernia (Non reducible, non-tender ventral hernia right paramedian) ...Auscultate: Yes: Normoactive Bowel Sounds Genitourinary: Yes: Other (Fluid filled scrotum, non-tender) Edema: No (No LE edema) Neurological: No: [facility] Labs: CBC, BMP 08/26/17 06:30 08/26/17 06:30 INR, PTT INR 1.57 (0.82-1.09) H 08/25/17 06:10 Hepatic Panel Total Bilirubin 4.2 mg/dL (0.2-1.0) H 08/26/17 06:30 AST 31 U/L (15-37) 08/26/17 06:30 ALT 20 U/L (12-78) 08/26/17 06:30 Alkaline Phosphatase 88 U/L (45-117) 08/26/17 06:30 Albumin 2.1 g/dl (3.4-5.0) L 08/26/17 06:30 Problem List - Problems (1) Ascites Assessment/Plan: Will need therapeutic paracentesis. if > 5 liters removed, replete with 6 grams of salt poor 25% albumin per liter of acites removed Remember to hold SC heparin the night before and morning of procedure and for however long after radiology advises to hold Diuresis: Aldactone 100mg daily and Lasix 40mg daily when K permits Daily weights / I's and O's Will need evaluation at a [facility] given complicated nature of his ascites. ? if TIPS is in order. Advised complete alcohol cessation Obtain Triple Phase CT scan of the abdomen with and without IV contrast ? prior history of SVC thrombus. Unclear what work-up has been performed in the past Code(s): R18.8 - OTHER ASCITES Qualifiers: Ascites type: due to alcoholic hepatitis Qualified Code(s): K70.11 - Alcoholic hepatitis with ascites
[2017-08-26] MEDS: SPIRONOLACTONE 25 MG TABLET (FP) PO SCH ×2 (12:00→13:15)
[2017-08-26] MEDS ORDERED: POTASSIUM CHLORIDE ORAL LIQUID 20 MEQ/15 ML PO ONE (12:00)
[2017-08-26] MEDS ORDERED: FUROSEMIDE 40 MG/4 ML INJECTABLE VIAL IVPUSH ONE (18:15)
[2017-08-27] MEDS: HEPARIN NA (PORCINE) 5,000 UNITS/ML 1ML VIAL SQ SCH ×3 (05:26→21:58)
[2017-08-27 07:42] LABS: ALBUMIN 2.1 g/dl (3.4-5.0); ANION GAP 6 (8-16); BLOOD UREA NITROGEN 12 mg/dL (7-18); CALCIUM 7.8 mg/dL (8.5-10.1); CHLORIDE 104 mmol/L (98-107); CO2 25 mmol/L (21-32); GLUCOSE,RANDOM 121 mg/dL (74-106); SGOT/AST 29 U/L (15-37); SGPT/ALT 18 U/L (12-78); SODIUM 135 mmol/L (136-145)
[2017-08-27 07:43] LABS: ALK PHOS 97 U/L (45-117); BILIRUBIN,TOTAL 3.8 mg/dL (0.2-1.0); CREATININE 0.6 mg/dL (0.7-1.3); TOT PROT 5.8 g/dl (6.4-8.2)
[2017-08-27] MEDS: POTASSIUM CHLORIDE TABS 20 MEQ TABLET.ER (FP) PO SCH (09:58)
[2017-08-27] MEDS: MULTIVITAMINS (DAILY MVI) TABLET (FP) PO SCH (09:58)
[2017-08-27] MEDS: THIAMINE HCL 100 MG TABLET (FP) PO SCH (09:58)
[2017-08-27] MEDS: SPIRONOLACTONE 25 MG TABLET (FP) PO SCH (09:59)
--- NOTE | 2017-08-27 14:04 | PN ---
Progress Note (short form) - Note Progress Note: has scrotal discomfort. difficulty elevating scrotum due to size. denies Cp, SOB , fever, chills, N/V/C/D no difficulties urinating with enlarged scrotum Current Medications Generic Name Dose Route Start Last Admin Trade Name Herb PRN Reason Stop Dose Admin Heparin Sodium (Porcine) 5,000 unit 08/24/17 22:00 08/27/17 13:14 Heparin - SQ 5,000 unit TID ERIC Administration Multivitamins/Minerals/Vitamin C 1 tab 08/26/17 10:00 08/27/17 09:58 Tab-A-Vit - PO 1 tab DAILY ERIC Administration Potassium Chloride 40 meq 08/24/17 21:30 08/27/17 09:58 K-Dur - PO 40 meq DAILY ERIC Administration Spironolactone 100 mg 08/26/17 11:39 08/27/17 09:59 Aldactone - PO Not Given DAILY ERIC Thiamine HCl 100 mg 08/25/17 10:00 08/27/17 09:58 Vitamin B1 - PO 100 mg DAILY ERIC Administration Last Vital Signs Temp Pulse Resp BP Pulse Ox 98.4 F 59 L 18 95/58 97 08/27/17 14:00 08/27/17 14:00 08/27/17 14:00 08/27/17 14:00 08/26/17 21:00 Intake & Output 08/24/17 08/25/17 08/26/17 08/27/17 23:59 23:59 23:59 23:59 Intake Total 919 928 1202 700 Output Total 2100 1400 1100 Balance 100 -1300 -270 -400 Weight 163 lb 167 lb 6.4 oz 167 lb 12.8 oz General NAD, HEENT anicteric CV S1 S2 RRR no murmur/rub/gallop Lungs CTA B/L no wheezing/rales/rhonchi Abdomen soft distended +fluid shift no hemagioma Extremities no pedal edema, no asterixis groin distended scrotum. soft not tender CBCD WBC 3.6 K/mm3 (4.0-10.0) L 08/26/17 06:30 RBC 2.72 M/mm3 (4.00-5.60) L 08/26/17 06:30 Hgb 11.2 GM/dL (11.7-16.9) L 08/26/17 06:30 Hct 31.2 % (35.4-49) L 08/26/17 06:30 MCV 114.6 fl (80-96) H 08/26/17 06:30 MCHC 35.8 g/dl (32.0-35.9) 08/26/17 06:30 RDW 14.5 % (11.9-15.9) 08/26/17 06:30 Plt Count 83 K/MM3 (134-434) L 08/26/17 06:30 MPV 9.9 fl (7.5-11.1) 08/26/17 06:30 CMP Sodium 135 mmol/L (136-145) L 08/27/17 06:30 Potassium 4.0 mmol/L (3.5-5.1) 08/27/17 06:30 Chloride 104 mmol/L (98-107) 08/27/17 06:30 Carbon Dioxide 25 mmol/L (21-32) 08/27/17 06:30 Anion Gap 6 (8-16) L 08/27/17 06:30 BUN 12 mg/dL (7-18) 08/27/17 06:30 Creatinine 0.6 mg/dL (0.7-1.3) L 08/27/17 06:30 Creat Clearance w eGFR > 60 (>60) 08/27/17 06:30 Calcium 7.8 mg/dL (8.5-10.1) L 08/27/17 06:30 Total Bilirubin 3.8 mg/dL (0.2-1.0) H 08/27/17 06:30 AST 29 U/L (15-37) 08/27/17 06:30 ALT 18 U/L (12-78) 08/27/17 06:30 Alkaline Phosphatase 97 U/L (45-117) 08/27/17 06:30 Total Protein 5.8 g/dl (6.4-8.2) L 08/27/17 06:30 Albumin 2.1 g/dl (3.4-5.0) L 08/27/17 06:30 A/P 52yo M with PMH ETOH cirrhosis, esophageal varices and PFO presented to the ER with scrotal and leg swelling 1. Decompensated ETOH cirrhosis with ascites- MELD 17. Disc function score 25. s /p diagnostic paracentesis done in the ER. negative for SBP. difficulty in diuresing due to hypotension. will attempt to give lasix if BP will tolerate. cont aldactone 100mg. plan for large volume paracentesis tomorrow. elevate scrotum, reverse trendelenberg. daily weights. would benefit from TIPS procedure however not a candidate due to chronic ETOH use. GI on board 2. Hypokalemia- resolved 3. hyponatremia- due to cirrhosis and volume overload. stable 4. Bilirubinemia- due to cirrhosis. does not apper icteric. awaiting for medical records from [facility] 5. Continuous ETOH dependence- no signs of withdrawal here. states last drink was almost 1 month ago. cont thiamine/folate/MVI. monitor for withdrawal symptoms 6. esophageal varices 7. PFO 8. DVT ppx- hep sq Visit type - Emergency Visit Emergency Visit: Yes ED Registration Date: 08/24/17 Care time: The patient presented to the Emergency Department on the above date and was hospitalized for further evaluation of their emergent condition. - New Patient This patient is new to me today: No - Critical Care Critical Care patient: No - Discharge Referral Referred to [facility] Med P.C.: No
[2017-08-28] MEDS: HEPARIN NA (PORCINE) 5,000 UNITS/ML 1ML VIAL SQ SCH ×2 (06:12→14:07)
[2017-08-28 07:23] LABS: CHLORIDE 107 mmol/L (98-107); POTASSIUM 4.3 mmol/L (3.5-5.1); SODIUM 138 mmol/L (136-145)
[2017-08-28 07:37] LABS: ALBUMIN 2.1 g/dl (3.4-5.0); ALK PHOS 83 U/L (45-117); ANION GAP 7 (8-16); BILIRUBIN,TOTAL 4.3 mg/dL (0.2-1.0); BLOOD UREA NITROGEN 13 mg/dL (7-18); CO2 24 mmol/L (21-32); CREATININE 0.6 mg/dL (0.7-1.3); GLUCOSE,RANDOM 91 mg/dL (74-106); SGOT/AST 32 U/L (15-37); SGPT/ALT 17 U/L (12-78); TOT PROT 5.9 g/dl (6.4-8.2)
[2017-08-28] MEDS: THIAMINE HCL 100 MG TABLET (FP) PO SCH (09:44)
[2017-08-28] MEDS: SPIRONOLACTONE 25 MG TABLET (FP) PO SCH (09:44)
[2017-08-28] MEDS: MULTIVITAMINS (DAILY MVI) TABLET (FP) PO SCH (09:44)
--- NOTE | 2017-08-28 16:12 | PN ---
Teaching Attending Note Name of Resident: René Freed ATTENDING PHYSICIAN STATEMENT I saw and evaluated the patient. I reviewed the resident's note and discussed the case with the resident. I agree with the resident's findings and plan as documented. SUBJECTIVE: Patient has no complaints. OBJECTIVE: Vital Signs Period Temp Pulse Resp BP Sys/[place] Pulse Ox Last 24 Hr 98 F-98.9 F 57-63 18-20 80-94/52-60 96-97 HEART: S1S2, RRR LUNGS: Clear ABDOMEN: Distended, tense, non-tender, normal BS GENITALIA: Scrotum massively enlarged with fluid EXTREMITIES: No edema Laboratory Results - last 24 hr 08/28/17 06:00 Sodium 138 Potassium 4.3 Chloride 107 Carbon Dioxide 24 Anion Gap 7 L BUN 13 Creatinine 0.6 L Creat Clearance w eGFR > 60 Random Glucose 91 D Calcium 8.0 L Total Bilirubin 4.3 H AST 32 ALT 17 Alkaline Phosphatase 83 Total Protein 5.9 L Albumin 2.1 L Current Medications Generic Name Dose Route Start Last Admin Trade Name Freq PRN Reason Stop Dose Admin Heparin Sodium (Porcine) 5,000 unit 08/24/17 22:00 08/28/17 14:07 Heparin - SQ Not Given TID ERIC Multivitamins/Minerals/Vitamin C 1 tab 08/26/17 10:00 08/28/17 09:44 Tab-A-Vit - PO 1 tab DAILY ERIC Administration Spironolactone 100 mg 08/27/17 14:09 08/28/17 09:44 Aldactone - PO 100 mg DAILY ERIC Administration Thiamine HCl 100 mg 08/25/17 10:00 08/28/17 09:44 Vitamin B1 - PO 100 mg DAILY ERIC Administration ASSESSMENT AND PLAN: This is a 52 year old man with a history of alcohol abuse, cirrhosis with ascites and esophageal varices, PFO who presented to the ED with abdominal and scrotal swelling. 1. Alcoholic cirrhosis with ascites, esophageal varices - MELD 17, MDF 25 - s/p diagnostic paracentesis in ED 08/24 - No evidence of SBP - Plan for therapeutic thoracentesis - Continue Aldactone - Triple phase CT of abdomen - Will need liver evaluation 2. Hypokalemia - Resolved 3. Hyponatremia - Resolved 4. Hyperbilirubinemia 5. Continuous alcohol dependence - No signs of withdrawal - Continue multivitamin, thiamine, folic acid 6. PFO
--- NOTE | 2017-08-28 17:49 | PN ---
Physical Exam: SUBJECTIVE: Pt originally presented with scrotal swelling found to have decompensated liver failure. Pt accidentally received SQ heparin this morning and so IR paracentesis was cancelled. Pt today complains of soreness at the bottom of his scrotum due to swelling. OBJECTIVE: Vital Signs Period Temp Pulse Resp BP Sys/[place] Pulse Ox Last 24 Hr 98 F-98.9 F 57-63 18-20 80-94/52-60 96-97 GENERAL: NAD, awake, alert, laying in bed, oriented x3 HEENT: EOMI, USHA, icteric sclera noted, moist mucous membranes, poor dentition LUNGS: CTA bilaterally, no wheezes, no crackles, no accessory muscle use. HEART: RRR, S1, S2 without murmur ABDOMEN: Soft, distended, shifting dullness appreciated, nontender, no guarding , no asterixis, hepatomegaly could not be assessed due to distention. : Scrotal swelling without erythema noted, no pain upon palpation EXTREMITIES: 2+ DP pulses, warm, no LLE edema. PSYCH: Normal mood, normal affect. SKIN: Warm, dry, no rashes or lesions noted Laboratory Results - last 24 hr 08/28/17 06:00 Sodium 138 Potassium 4.3 Chloride 107 Carbon Dioxide 24 Anion Gap 7 L BUN 13 Creatinine 0.6 L Creat Clearance w eGFR > 60 Random Glucose 91 D Calcium 8.0 L Total Bilirubin 4.3 H AST 32 ALT 17 Alkaline Phosphatase 83 Total Protein 5.9 L Albumin 2.1 L Active Medications Generic Name Dose Route Start Last Admin Trade Name Freq PRN Reason Stop Dose Admin Folic Acid 1 mg 08/29/17 10:00 Folic Acid - PO DAILY PENDING SALE TO [facility] Heparin Sodium (Porcine) 5,000 unit 08/24/17 22:00 08/28/17 14:07 Heparin - SQ Not Given TID ERIC Multivitamins/Minerals/Vitamin C 1 tab 08/26/17 10:00 08/28/17 09:44 Tab-A-Vit - PO 1 tab DAILY ERIC Administration Spironolactone 100 mg 08/27/17 14:09 08/28/17 09:44 Aldactone - PO 100 mg DAILY ERIC Administration Thiamine HCl 100 mg 08/25/17 10:00 08/28/17 09:44 Vitamin B1 - PO 100 mg DAILY ERIC Administration ASSESSMENT/PLAN: 1) Decompensated alcoholic cirrhosis w/ ascites --MELD: 15-17; ~6% 3-month mortality --Pt had therapeutic paracentesis cancelled due to SQ heparin today --Case discussed with Dr. Love --Pt at high risk of hepatorenal syndrome with such drastic fluid shift of a therapeutic paracentesis --Will add back Lasix with Albumin (previously stopped lasix due to hypotension, but will adjust dose accordingly) --Continue Aldactone 100mg qdaily --Continue to elevate scrotum and keep in T-david for comfort --? triple phase CT scan of abdomen w/ and w/o IV contrast 2) Hyperbilirubinemia --See above 3) H/o ETOH abuse --No active withdrawal --Continue folic acid, thiamine and multivitamin daily FEN: fluids: avoid Electrolyte abnormalities: None currently; resolved issues Nutrition: Sodium controlled PPX: DVT - Heparin discontinued due to thrombocytopenia and liver dysfunction Dispo: continue monitoring; discontinue telemetry Case discussed with Dr. Luque and Dr. Kate Freed, DO - IM PGY-1 Visit type - Emergency Visit Emergency Visit: No - New Patient This patient is new to me today: No - Critical Care Critical Care patient: No
--- NOTE | 2017-08-28 18:41 | PN ---
GI Progress Note Subjective: GI Note: Mentally alert. Denies pain. No tremors. Claims that he last drank alcohol 4 months ago. He is able to push scrotal fluid back in to the abdomen but it simply returns rapidly. He has been seen at [facility] but not recently. He denies ever having had a TIPs procedure. He denies hepatic encephalopathy. His weight has increased from 163 on the day following the paracentesis to 168 despite spironolactone. He has no ankle edema and is scheduled for repeat paracentesis tomorrow. he had probelems with hypotension on lasix earlier according to Dr Freed - Objective Vital Signs: Vital Signs Temperature 98.0 F 08/28/17 17:00 Pulse Rate 61 08/28/17 17:00 Respiratory Rate 20 08/28/17 17:00 Blood Pressure 91/54 08/28/17 17:00 O2 Sat by Pulse Oximetry (%) 96 08/28/17 08:00 Laboratory Tests 08/24/17 08/25/17 08/25/17 16:46 06:10 06:10 WBC Hgb 11.3 L D Plt Count 100 L Total Bilirubin 3.6 H D AST ALT Alkaline Phosphatase Albumin Tumor Marker AFP 2.1 08/26/17 08/28/17 06:30 06:00 WBC 3.6 L Hgb 11.2 L Plt Count 83 L Total Bilirubin 4.3 H AST 32 ALT 17 Alkaline Phosphatase 83 Albumin 2.1 L Tumor Marker AFP Constitutional: No Distress Eyes: Yes: Sclera Icterus Gastrointestinal Inspection: Yes: Distention ...Auscultate: Yes: Normoactive Bowel Sounds ...Palpate: Yes: Soft (not tense), Other (nontender) Genitourinary: Yes: Scrotal Edema (massive but not tense) Edema: No Labs: CBC, BMP 08/26/17 06:30 08/28/17 06:00 INR, PTT INR 1.57 (0.82-1.09) H 08/25/17 06:10 Problem List - Problems (1) Alcoholic cirrhosis of liver with ascites Assessment/Plan: Before attempting another paracentesis will implement furosemide IV with salt poor albumin infusions as this poses lower risk of developing hepatorenal syndrome. I discussed this with the resident, Dr Freed. If this fails and his ascites proves refractory he may need a TIPs procedure which will require transfer to [facility]. I have explained to Canelo in his [place] that this brings with it the risk of hepatic encephalopathy. Will stop heparin as Canelo is autoanticoagulated with elevated INR and thrombocytopenia. Code(s): K70.31 - ALCOHOLIC CIRRHOSIS OF LIVER WITH ASCITES (2) Thrombocytopenia concurrent with and due to alcoholism Code(s): D69.59 - OTHER SECONDARY THROMBOCYTOPENIA; F10.20 - ALCOHOL DEPENDENCE , UNCOMPLICATED (3) Coagulopathy Code(s): D68.9 - COAGULATION DEFECT, UNSPECIFIED (4) Scrotum swelling Code(s): N50.89 - OTHER SPECIFIED DISORDERS OF THE MALE GENITAL ORGANS
[2017-08-29 00:10] LABS: HEP.C VIRUS AB 0.1 s/co ratio (0.0-0.9)
[2017-08-29 07:21] LABS: HEMATOCRIT 31.6 % (35.4-49); HEMOGLOBIN 11.4 GM/dL (11.7-16.9); MCHC 35.9 g/dl (32.0-35.9); MEAN CELL VOLUME 114.4 fl (80-96); MEAN PLT VOLUME 9.2 fl (7.5-11.1); PLATELET COUNT 95 K/MM3 (134-434); RBC 2.77 M/mm3 (4.00-5.60); RDW 14.7 % (11.9-15.9); WHITE BLOOD COUNT 3.9 K/mm3 (4.0-10.0)
[2017-08-29 07:31] LABS: INR 1.45 (0.82-1.09); PROTHROMBIN TIME (PATIENT) 16.4 SEC (9.7-13.0)
[2017-08-29 07:33] LABS: ACTIVATED PTT 35.6 SECONDS (26.9-34.4); ANION GAP 6 (8-16); BLOOD UREA NITROGEN 13 mg/dL (7-18); CALCIUM 7.6 mg/dL (8.5-10.1); CHLORIDE 108 mmol/L (98-107); CO2 23 mmol/L (21-32); CREATININE 0.6 mg/dL (0.7-1.3); GLUCOSE,RANDOM 97 mg/dL (74-106); POTASSIUM 4.2 mmol/L (3.5-5.1); SODIUM 137 mmol/L (136-145)
[2017-08-29 07:34] LABS: MCH 41.1 pg (25.7-33.7)
--- NOTE | 2017-08-29 07:54 | PN ---
Physical Exam: SUBJECTIVE: No events overnight. No new complaints today and pt reports slight discomfort at the inferior aspect of his scrotum w/o difficulty urinating still OBJECTIVE: Vital Signs Period Temp Pulse Resp BP Sys/[place] Pulse Ox Last 24 Hr 97.2 F-99.0 F 58-79 18-20 86-115/24-76 94-96 GENERAL: NAD, awake, alert, laying in bed, oriented x3 HEENT: EOMI, USHA, icteric sclera noted, moist mucous membranes with cracked tongue, poor dentition LUNGS: CTA bilaterally, no wheezes, no crackles, no accessory muscle use. HEART: RRR, S1, S2 without murmur ABDOMEN: Soft, collateral veins appreciated. distended, shifting dullness appreciated, nontender, no guarding, no asterixis, hepatomegaly could not be assessed due to distention, umbilical hernia noted. : Scrotal swelling without erythema noted, no pain upon palpation EXTREMITIES: 2+ DP pulses, warm, no LLE edema. PSYCH: Normal mood, normal affect. SKIN: Warm, dry, no rashes or lesions noted Laboratory Results - last 24 hr 08/25/17 08/28/17 08/29/17 12:55 06:00 06:10 WBC RBC Hgb Hct MCV MCH MCHC RDW Plt Count MPV Sodium 138 137 Potassium 4.3 4.2 Chloride 107 108 H Carbon Dioxide 24 23 Anion Gap 7 L 6 L BUN 13 13 Creatinine 0.6 L 0.6 L Creat Clearance w eGFR > 60 Random Glucose 91 D 97 Calcium 8.0 L 7.6 L Total Bilirubin 4.3 H AST 32 ALT 17 Alkaline Phosphatase 83 Total Protein 5.9 L Albumin 2.1 L Hepatitis A IgM Ab Negative Hep Bs Antigen Negative Hep B Core IgM Ab Negative Hepatitis C Antibody 0.1 08/29/17 06:10 WBC 3.9 L RBC 2.77 L Hgb 11.4 L Hct 31.6 L MCV 114.4 H MCH 41.1 H MCHC 35.9 RDW 14.7 Plt Count 95 L MPV 9.2 Sodium Potassium Chloride Carbon Dioxide Anion Gap BUN Creatinine Creat Clearance w eGFR Random Glucose Calcium Total Bilirubin AST ALT Alkaline Phosphatase Total Protein Albumin Hepatitis A IgM Ab Hep Bs Antigen Hep B Core IgM Ab Hepatitis C Antibody Active Medications Generic Name Dose Route Start Last Admin Trade Name Freq PRN Reason Stop Dose Admin Albumin Human 12.5 gm 08/29/17 09:00 Albumin Human 25% IVPB 08/30/17 21:01 Q12H [facility] Folic Acid 1 mg 08/29/17 10:00 Folic Acid - PO DAILY ERIC Furosemide 40 mg 08/29/17 12:00 Lasix Injection - IVPUSH DAILY@1200 ERIC Multivitamins/Minerals/Vitamin C 1 tab 08/26/17 10:00 08/28/17 09:44 Tab-A-Vit - PO 1 tab DAILY ERIC Administration Spironolactone 100 mg 08/27/17 14:09 08/28/17 09:44 Aldactone - PO 100 mg DAILY ERIC Administration Thiamine HCl 100 mg 08/25/17 10:00 08/28/17 09:44 Vitamin B1 - PO 100 mg DAILY ERIC Administration ASSESSMENT/PLAN: 1) Decompensated alcoholic cirrhosis w/ ascites --MELD: 15-17; ~6% 3-month mortality --Lasix 40mg IVP at noon with sodium poor albumin to help diuresis and avoid hypotension transiently --Paracentesis should probably be avoided due to high risk of hepatorenal syndrome --Case discussed with Dr. Love --Continue Aldactone 100mg qdaily --Continue to elevate scrotum and keep in T-david for comfort --Triple phase CT shows no evidence of hepatic masses; massive ascites noted 2) Hyperbilirubinemia --See above 3) H/o ETOH abuse --No active withdrawal --Continue folic acid, thiamine and multivitamin daily 4) Thrombocytopenia --Uptrending --Heparin previously discontinued as a result FEN: fluids: avoid Electrolyte abnormalities: None currently; resolved issues Nutrition: Sodium controlled PPX: DVT - Heparin discontinued due to thrombocytopenia and liver dysfunction Dispo: continue monitoring; discontinue telemetry Case discussed with Dr. Puneet Freed, DO - IM PGY-1 Visit type - Emergency Visit Emergency Visit: No - New Patient This patient is new to me today: No - Critical Care Critical Care patient: No
[2017-08-29] MEDS ORDERED: ALBUMIN HUMAN 25% 12.5 GM/50 ML VIAL IVPB SCH (09:00)
[2017-08-29] MEDS: ALBUMIN HUMAN 25% 12.5 GM/50 ML VIAL IVPB SCH ×2 (10:43→21:28)
[2017-08-29] MEDS: SPIRONOLACTONE 25 MG TABLET (FP) PO SCH (10:44)
[2017-08-29] MEDS: THIAMINE HCL 100 MG TABLET (FP) PO SCH (10:44)
[2017-08-29] MEDS: FOLIC ACID 1 MG TABLET (FP) PO SCH (10:44)
[2017-08-29] MEDS: MULTIVITAMINS (DAILY MVI) TABLET (FP) PO SCH (10:45)
[2017-08-29] MEDS ORDERED: FUROSEMIDE 40 MG/4 ML INJECTABLE VIAL IVPUSH SCH (12:00)
--- NOTE | 2017-08-29 12:23 | PN ---
GI Progress Note Subjective: GI NOte: Got albumin. IV lasix in next. Hope to get a diuresis that will not compromise his vital signs and renal function. Discussed with Dr Freed - Objective Vital Signs: Vital Signs Temperature 97 F L 08/29/17 09:57 Pulse Rate 64 08/29/17 09:57 Respiratory Rate 20 08/29/17 09:57 Blood Pressure 98/55 08/29/17 09:57 O2 Sat by Pulse Oximetry (%) 94 L 08/28/17 21:00 Laboratory Tests 08/28/17 08/29/17 06:00 06:10 BUN 13 13 Creatinine 0.6 L 0.6 L Constitutional: Calm Eyes: Yes: Sclera Icterus Gastrointestinal Inspection: Yes: Distention (not tense) ...Auscultate: Yes: Normoactive Bowel Sounds ...Palpate: Yes: Soft, Other (nontender) Labs: CBC, BMP 08/29/17 06:10 08/29/17 06:10 INR, PTT INR 1.45 (0.82-1.09) H 08/29/17 06:10 Problem List - Problems (1) Alcoholic cirrhosis of liver with ascites Assessment/Plan: Albumin infusions with IV lasix to promote diuresis is in play Code(s): K70.31 - ALCOHOLIC CIRRHOSIS OF LIVER WITH ASCITES (2) Thrombocytopenia concurrent with and due to alcoholism Code(s): D69.59 - OTHER SECONDARY THROMBOCYTOPENIA; F10.20 - ALCOHOL DEPENDENCE , UNCOMPLICATED (3) Coagulopathy Code(s): D68.9 - COAGULATION DEFECT, UNSPECIFIED (4) Scrotum swelling Code(s): N50.89 - OTHER SPECIFIED DISORDERS OF THE MALE GENITAL ORGANS
[2017-08-29] MEDS: FUROSEMIDE 40 MG/4 ML INJECTABLE VIAL IVPUSH SCH (12:52)
--- NOTE | 2017-08-29 18:39 | PN ---
Teaching Attending Note Name of Resident: René Freed ATTENDING PHYSICIAN STATEMENT I saw and evaluated the patient. I reviewed the resident's note and discussed the case with the resident. I agree with the resident's findings and plan as documented. SUBJECTIVE: No fever or chills . No abd pain. cont to have srotal edema with some discomfort OBJECTIVE: NAD Cv: RRR Lungs: decreased breath sounds in bases Ext: no edema Abd: distended, soft, NT. + shifting dullness. liver is not palpated : distended scrotum, with no erythema or tenderness. R testicle felt , not left. ASSESSMENT AND PLAN: 52 y/o man with h/o Alcoholic dependence, h/o SVC thrombus ,alcoholic cirrhosis , pancreatitis , and thrombocytopenia who presented with abdominal and scrotal distention 1- Liver cirrhosis with Ascitis: diagnostic para with no SBP and SAAG of 1.1 - cont lasix , spironolactone and albumin infusion - appreciate dr. Love input - low salt diet - follow bili - hepatitis serology missing hep B surface abx. will order. last in 2011 was inconsistent with immunity - no known h/o esophageal varices 2- Alcohol dependence. last use 1 months ago 3- Thrombocytopenia: due to cirrhosis and alcohol BM suppression . 4- low salt diet SCDs
[2017-08-30 08:00] LABS: HEMATOCRIT 31.3 % (35.4-49); HEMOGLOBIN 11.2 GM/dL (11.7-16.9); MCHC 35.8 g/dl (32.0-35.9); MEAN CELL VOLUME 115.1 fl (80-96); MEAN PLT VOLUME 9.4 fl (7.5-11.1); PLATELET COUNT 91 K/MM3 (134-434); RBC 2.72 M/mm3 (4.00-5.60); RDW 14.9 % (11.9-15.9); WHITE BLOOD COUNT 4.4 K/mm3 (4.0-10.0)
[2017-08-30 08:15] LABS: CHLORIDE 107 mmol/L (98-107); POTASSIUM 4.1 mmol/L (3.5-5.1); SODIUM 137 mmol/L (136-145)
[2017-08-30 08:16] LABS: MCH 41.2 pg (25.7-33.7)
--- NOTE | 2017-08-30 08:31 | PN ---
Physical Exam: SUBJECTIVE: No complaints today. Monitor without any significant findings OBJECTIVE: Vital Signs Period Temp Pulse Resp BP Sys/[place] Pulse Ox Last 24 Hr 97 F-98.9 F 60-75 18-20 87-98/53-60 94-99 GENERAL: NAD, awake, alert, laying in bed, oriented x3 HEENT: EOMI, USHA, icteric sclera noted, moist mucous membranes with cracked tongue, poor dentition LUNGS: CTA bilaterally, no wheezes, no crackles, no accessory muscle use. HEART: RRR, S1, S2 without murmur ABDOMEN: Soft, collateral veins appreciated. distended, shifting dullness appreciated, nontender, no guarding, no asterixis, hepatomegaly could not be assessed due to distention, umbilical hernia noted. : Scrotal swelling without erythema noted EXTREMITIES: 2+ DP pulses, warm, no LLE edema. PSYCH: Normal mood, normal affect. SKIN: Warm, dry, no rashes or lesions noted Laboratory Results - last 24 hr 08/29/17 08/30/17 08/30/17 06:10 06:15 06:15 WBC 4.4 RBC 2.72 L Hgb 11.2 L Hct 31.3 L MCV 115.1 H MCH 41.2 H MCHC 35.8 RDW 14.9 Plt Count 91 L MPV 9.4 Polychromasia 1+ Sodium 137 Potassium 4.1 Chloride 107 Active Medications Generic Name Dose Route Start Last Admin Trade Name Freq PRN Reason Stop Dose Admin Albumin Human 12.5 gm 08/29/17 09:00 08/29/17 21:28 Albumin Human 25% IVPB 08/30/17 21:01 12.5 gm Q12H ERIC Administration Folic Acid 1 mg 08/29/17 10:00 08/29/17 10:44 Folic Acid - PO 1 mg DAILY ERIC Administration Furosemide 40 mg 08/29/17 12:00 08/29/17 12:52 Lasix Injection - IVPUSH 40 mg DAILY@1200 ERIC Administration Multivitamins/Minerals/Vitamin C 1 tab 08/26/17 10:00 08/29/17 10:45 Tab-A-Vit - PO 1 tab DAILY ERIC Administration Spironolactone 100 mg 08/27/17 14:09 08/29/17 10:44 Aldactone - PO 100 mg DAILY ERIC Administration Thiamine HCl 100 mg 08/25/17 10:00 08/29/17 10:44 Vitamin B1 - PO 100 mg DAILY ERIC Administration ASSESSMENT/PLAN: 1) Decompensated alcoholic cirrhosis w/ ascites --MELD: 15-17; ~6% 3-month mortality --Lasix 40mg IVP at noon with sodium poor albumin to help diuresis and avoid hypotension transiently --Paracentesis should probably be avoided due to high risk of hepatorenal syndrome --Dr. Love on board --Will have to discuss next steps including risk vs. benefit of therapeutic paracentesis if pt does not diurese --Continue Aldactone 100mg qdaily --Continue to elevate scrotum and keep in T-david for comfort --Triple phase CT shows no evidence of hepatic masses; massive ascites noted 2) Hyperbilirubinemia --See above 3) H/o ETOH abuse --No active withdrawal --Continue folic acid, thiamine and multivitamin daily 4) Thrombocytopenia --Uptrending --Heparin previously discontinued as a result FEN: fluids: avoid Electrolyte abnormalities: None currently; resolved issues Nutrition: Sodium controlled PPX: DVT - Heparin discontinued due to thrombocytopenia and liver dysfunction Dispo: continue monitoring Case discussed with Dr. Puneet Freed, DO - IM PGY-1 Visit type - Emergency Visit Emergency Visit: No - New Patient This patient is new to me today: No - Critical Care Critical Care patient: No
[2017-08-30 08:33] LABS: ALBUMIN 2.4 g/dl (3.4-5.0); ALK PHOS 95 U/L (45-117); ANION GAP 8 (8-16); BILIRUBIN,TOTAL 4.4 mg/dL (0.2-1.0); CO2 22 mmol/L (21-32); CREATININE 0.6 mg/dL (0.7-1.3); GLUCOSE,RANDOM 102 mg/dL (74-106); SGOT/AST 33 U/L (15-37); SGPT/ALT 17 U/L (12-78); TOT PROT 6.1 g/dl (6.4-8.2)
[2017-08-30 08:42] LABS: BLOOD UREA NITROGEN 13 mg/dL (7-18)
[2017-08-30] MEDS ORDERED: PT OWN MED DRAWER 7, Y5N ONE (09:02)
[2017-08-30] MEDS: ALBUMIN HUMAN 25% 12.5 GM/50 ML VIAL IVPB SCH ×2 (09:11→21:19)
[2017-08-30] MEDS: MULTIVITAMINS (DAILY MVI) TABLET (FP) PO SCH (09:11)
[2017-08-30] MEDS: SPIRONOLACTONE 25 MG TABLET (FP) PO SCH (09:11)
[2017-08-30] MEDS: FOLIC ACID 1 MG TABLET (FP) PO SCH (09:12)
[2017-08-30] MEDS: THIAMINE HCL 100 MG TABLET (FP) PO SCH (09:12)
[2017-08-30] MEDS: FUROSEMIDE 40 MG/4 ML INJECTABLE VIAL IVPUSH SCH (13:11)
--- NOTE | 2017-08-30 14:41 | PN ---
Teaching Attending Note Name of Resident: René Freed ATTENDING PHYSICIAN STATEMENT I saw and evaluated the patient. I reviewed the resident's note and discussed the case with the resident. I agree with the resident's findings and plan as documented. SUBJECTIVE: No fever or chills. has discomfort in scrotum. no abd pain. No N/V OBJECTIVE: NAD Cv: RRR Lungs: decreased breath sounds in bases Ext: no edema Abd: distended, soft, NT. + shifting dullness. liver is not palpated : distended scrotum, with no erythema or tenderness. R testicle felt , not left. ASSESSMENT AND PLAN: 52 y/o man with h/o Alcoholic dependence, h/o SVC thrombus ,alcoholic cirrhosis , pancreatitis , and thrombocytopenia who presented with abdominal and scrotal distention 1- Liver cirrhosis with Ascitis: diagnostic para with no SBP and SAAG of 1.1 - cont lasix , spironolactone and albumin infusion . BP on lower diann ebut no sx - net positive yesterday , but neg 750cc so far today. - low salt diet - follow hep B sAbs. hep serology in 2011 was inconsistent with immunity - will d/w GI next step if no improvement by tomorrow. ? therapeutic tap 2- Alcohol dependence. no drink in 1 month 3- Thrombocytopenia: due to cirrhosis and alcohol BM suppression . 4- Enlarged scrotum: due to ascitis fluid leak to scrotum form b/l hernia control ascitis . ? paracentesis low salt diet SCDs
--- NOTE | 2017-08-30 23:07 | PN ---
GI Progress Note Subjective: GI NOte> Minimal diuresis of 1 lbs. Will increase albumin to q6h and continue IV lasix as vital signs and renal function have been stable with this. He remains at risk of developing hepatorenal syndrome. If this fails and paracentesis is undertake he will need albumin infusions to try to maintain renal perfusion. May need to consider transfer to [facility] for TIPs procedure - Objective Vital Signs: Vital Signs Temperature 98.2 F 08/30/17 19:50 Pulse Rate 60 08/30/17 19:50 Respiratory Rate 20 08/30/17 19:50 Blood Pressure 86/53 08/30/17 19:50 O2 Sat by Pulse Oximetry (%) 99 08/30/17 09:00 Constitutional: Other (sleeping. did not awaken given the hour) Labs: CBC, BMP 08/30/17 06:15 08/30/17 06:15 INR, PTT INR 1.45 (0.82-1.09) H 08/29/17 06:10 Problem List - Problems (1) Alcoholic cirrhosis of liver with ascites Assessment/Plan: Increase frequency of albumin infusions with IV lasix to promote diuresis. If ascites is refractory may need TIPs Code(s): K70.31 - ALCOHOLIC CIRRHOSIS OF LIVER WITH ASCITES (2) Thrombocytopenia concurrent with and due to alcoholism Code(s): D69.59 - OTHER SECONDARY THROMBOCYTOPENIA; F10.20 - ALCOHOL DEPENDENCE , UNCOMPLICATED (3) Coagulopathy Code(s): D68.9 - COAGULATION DEFECT, UNSPECIFIED (4) Scrotum swelling Code(s): N50.89 - OTHER SPECIFIED DISORDERS OF THE MALE GENITAL ORGANS
[2017-08-31] MEDS: FUROSEMIDE 40 MG/4 ML INJECTABLE VIAL IVPUSH SCH ×2 (06:21→15:27)
[2017-08-31 07:25] LABS: HEMATOCRIT 30.4 % (35.4-49); MCHC 36.2 g/dl (32.0-35.9); MEAN CELL VOLUME 113.7 fl (80-96); PLATELET COUNT 89 K/MM3 (134-434); RBC 2.67 M/mm3 (4.00-5.60); WHITE BLOOD COUNT 4.2 K/mm3 (4.0-10.0)
[2017-08-31 07:29] LABS: MCH 41.2 pg (25.7-33.7)
[2017-08-31 08:38] LABS: ANION GAP 10 (8-16); BLOOD UREA NITROGEN 15 mg/dL (7-18); CALCIUM 8.4 mg/dL (8.5-10.1); CHLORIDE 108 mmol/L (98-107); CO2 19 mmol/L (21-32); CREATININE 0.5 mg/dL (0.7-1.3); GLUCOSE,RANDOM 93 mg/dL (74-106); POTASSIUM 4.2 mmol/L (3.5-5.1); SODIUM 137 mmol/L (136-145)
[2017-08-31] MEDS: SPIRONOLACTONE 25 MG TABLET (FP) PO SCH (09:44)
[2017-08-31] MEDS: FOLIC ACID 1 MG TABLET (FP) PO SCH (09:44)
[2017-08-31] MEDS: MULTIVITAMINS (DAILY MVI) TABLET (FP) PO SCH (09:45)
[2017-08-31] MEDS: THIAMINE HCL 100 MG TABLET (FP) PO SCH (09:45)
[2017-08-31] MEDS: ALBUMIN HUMAN 25% 12.5 GM/50 ML VIAL IVPB SCH ×3 (12:25→23:53)
--- NOTE | 2017-08-31 18:07 | PN ---
Teaching Attending Note Name of Resident: René Freed ATTENDING PHYSICIAN STATEMENT I saw and evaluated the patient. I reviewed the resident's note and discussed the case with the resident. I agree with the resident's findings and plan as documented. SUBJECTIVE: No fever or chills. has no abd pain. discomfort in scrotum . OBJECTIVE: NAD Cv: RRR Lungs: decreased breath sounds in bases Ext: no edema Abd: distended, soft, NT. + shifting dullness. liver is not palpated : distended scrotum, with no erythema or tenderness. R testicle felt , not left. ASSESSMENT AND PLAN: 52 y/o man with h/o Alcoholic dependence, h/o SVC thrombus ,alcoholic cirrhosis , pancreatitis , and thrombocytopenia who presented with abdominal and scrotal distention 1- Liver cirrhosis with Ascitis: - cont lasix , spironolactone and albumin infusion .missing some lasix dosing due to hypotension SBP in 80s - Net neg 690 cc yesterday - Hep serology is not consistent with immunity. needs a full seris of hep B vaccine - f/u with GI re TIPS 2- Alcohol dependence. no drink in 1 month 3- Thrombocytopenia: due to cirrhosis and alcohol BM suppression . 4- Enlarged scrotum: due to ascitis fluid leak to scrotum form b/l hernia control ascitis . scrotal support sling low salt diet SCDs
--- NOTE | 2017-08-31 18:54 | PN ---
Physical Exam: SUBJECTIVE: Pt noted to be hypotensive last night and lasix was held per night team. No new complaints today. No monitor events noted. OBJECTIVE: Vital Signs Period Temp Pulse Resp BP Sys/[place] Pulse Ox Last 24 Hr 98 F-98.2 F 60-64 18-20 85-89/50-58 97-98 GENERAL: NAD, awake, alert, laying in bed, oriented x3 HEENT: EOMI, USHA, icteric sclera noted, moist mucous membranes with cracked tongue LUNGS: CTA bilaterally, no wheezes, no crackles, no accessory muscle use. HEART: RRR, S1, S2 without murmur ABDOMEN: Soft, collateral veins appreciated. distended, shifting dullness seems to have decreased, nontender, no guarding, no asterixis, hepatomegaly could not be assessed due to distention, umbilical hernia noted. : Scrotal swelling without erythema noted EXTREMITIES: 2+ DP pulses, warm, no LLE edema. PSYCH: Normal mood, normal affect. SKIN: Warm, dry, no rashes or lesions noted Laboratory Results - last 24 hr 08/30/17 08/31/17 08/31/17 06:15 06:03 06:03 WBC 4.2 RBC 2.67 L Hgb 11.0 L Hct 30.4 L MCV 113.7 H MCH 41.2 H MCHC 36.2 H RDW 15.0 Plt Count 89 L MPV 9.0 Sodium 137 Potassium 4.2 Chloride 108 H Carbon Dioxide 19 L Anion Gap 10 BUN 15 Creatinine 0.5 L Random Glucose 93 Calcium 8.4 L Hep Bs Antibody, Quant <3.1 L Active Medications Generic Name Dose Route Start Last Admin Trade Name Freq PRN Reason Stop Dose Admin Albumin Human 12.5 gm 08/31/17 12:00 08/31/17 17:23 Albumin Human 25% IVPB 09/02/17 06:01 12.5 gm Q6H ERIC Administration Folic Acid 1 mg 08/29/17 10:00 08/31/17 09:44 Folic Acid - PO 1 mg DAILY ERIC Administration Furosemide 40 mg 08/31/17 06:00 08/31/17 15:27 Lasix Injection - IVPUSH Not Given BID@0600,1400 [facility] Multivitamins/Minerals/Vitamin C 1 tab 08/26/17 10:00 08/31/17 09:45 Tab-A-Vit - PO 1 tab DAILY ERIC Administration Spironolactone 100 mg 08/27/17 14:09 08/31/17 09:44 Aldactone - PO Not Given DAILY ERIC Thiamine HCl 100 mg 08/25/17 10:00 08/31/17 09:45 Vitamin B1 - PO 100 mg DAILY ERCI Administration ASSESSMENT/PLAN: 1) Decompensated alcoholic cirrhosis w/ ascites --Dr. Love on board --Albumin changed to q6h today --Would like to avoid paracentesis due to increased risk of hepatorenal syndrome --Will give 24h chance for new change in albumin; however may need next steps --Continue Aldactone 100mg qdaily --Lasix 40mg IVP BID --Hold diuretics for SBP <95, DBP <60 --Continue to elevate scrotum and keep in T-david for comfort --Ordered scrotal support --Triple phase CT shows no evidence of hepatic masses 2) Hyperbilirubinemia --See above 3) H/o ETOH abuse --No active withdrawal --Continue folic acid, thiamine and multivitamin daily 4) Thrombocytopenia --Continue to hold heparin SQ FEN: fluids: avoid Electrolyte abnormalities: None currently; resolved issues Nutrition: Sodium controlled PPX: DVT - Heparin discontinued due to thrombocytopenia and liver dysfunction Dispo: continue monitoring Case discussed with Dr. Puneet Freed, DO - IM PGY-1 Visit type - Emergency Visit Emergency Visit: No - New Patient This patient is new to me today: No - Critical Care Critical Care patient: No
[2017-08-31] MEDS ORDERED: PT OWN MED DRAWER 7, Y5N ONE (23:43)
[2017-09-01] MEDS: FUROSEMIDE 40 MG/4 ML INJECTABLE VIAL IVPUSH SCH ×2 (06:13→15:05)
[2017-09-01] MEDS ORDERED: PT OWN MED DRAWER 7, Y5N ONE (06:15)
[2017-09-01] MEDS: ALBUMIN HUMAN 25% 12.5 GM/50 ML VIAL IVPB SCH ×3 (06:21→18:09)
[2017-09-01 07:19] LABS: HEMATOCRIT 28.8 % (35.4-49); HEMOGLOBIN 10.3 GM/dL (11.7-16.9); MCHC 35.9 g/dl (32.0-35.9); MEAN CELL VOLUME 114.8 fl (80-96); MEAN PLT VOLUME 9.1 fl (7.5-11.1); PLATELET COUNT 89 K/MM3 (134-434); RBC 2.51 M/mm3 (4.00-5.60); RDW 14.6 % (11.9-15.9)
[2017-09-01 07:41] LABS: INR 1.59 (0.82-1.09); MCH 41.2 pg (25.7-33.7)
--- NOTE | 2017-09-01 07:43 | PN ---
Physical Exam: SUBJECTIVE: No complaints. No events OBJECTIVE: Vital Signs Period Temp Pulse Resp BP Sys/Ellington Pulse Ox Last 24 Hr 98 F-98.6 F 56-64 18-20 82-91/47-66 97-100 GENERAL: NAD, awake, alert, laying in bed, oriented x3 HEENT: EOMI, USHA, icteric sclera noted, moist mucous membranes with cracked tongue LUNGS: CTA bilaterally, no wheezes, no crackles, no accessory muscle use. HEART: RRR, S1, S2 without murmur ABDOMEN: Soft, collateral veins appreciated. distended, shifting dullness present, nontender, no guarding, no asterixis, hepatomegaly could not be assessed due to distention, umbilical hernia noted. : Scrotal swelling without erythema noted EXTREMITIES: 2+ DP pulses, warm, no LLE edema. PSYCH: Normal mood, normal affect. SKIN: Warm, dry, no rashes or lesions noted Laboratory Results - last 24 hr 08/31/17 09/01/17 06:03 06:30 WBC 4.0 RBC 2.51 L Hgb 10.3 L Hct 28.8 L MCV 114.8 H MCH 41.2 H MCHC 35.9 RDW 14.6 Plt Count 89 L MPV 9.1 Sodium 137 Potassium 4.2 Chloride 108 H Carbon Dioxide 19 L Anion Gap 10 BUN 15 Creatinine 0.5 L Random Glucose 93 Calcium 8.4 L Active Medications Generic Name Dose Route Start Last Admin Trade Name Freq PRN Reason Stop Dose Admin Albumin Human 12.5 gm 08/31/17 12:00 09/01/17 06:21 Albumin Human 25% IVPB 09/02/17 06:01 12.5 gm Q6H ERIC Administration Folic Acid 1 mg 08/29/17 10:00 08/31/17 09:44 Folic Acid - PO 1 mg DAILY ERIC Administration Furosemide 40 mg 08/31/17 06:00 09/01/17 06:13 Lasix Injection - IVPUSH Not Given BID@0600,1400 [facility] Multivitamins/Minerals/Vitamin C 1 tab 08/26/17 10:00 08/31/17 09:45 Tab-A-Vit - PO 1 tab DAILY ERIC Administration Spironolactone 100 mg 08/27/17 14:09 08/31/17 09:44 Aldactone - PO Not Given DAILY ERIC Thiamine HCl 100 mg 08/25/17 10:00 08/31/17 09:45 Vitamin B1 - PO 100 mg DAILY ERIC Administration ASSESSMENT/PLAN: 1) Decompensated alcoholic cirrhosis w/ ascites --Dr. Love on board --Spoke to Dr. Espinal covering over weekend; will give until Sunday for diuresis --Continue Aldactone 100mg qdaily --Lasix 40mg IVP BID --Hold diuretics for SBP <95, DBP <60 --Continue to elevate scrotum and keep in T-david for comfort --Ordered scrotal support --Triple phase CT shows no evidence of hepatic masses 2) Hyperbilirubinemia --See above 3) H/o ETOH abuse --No active withdrawal --Continue folic acid, thiamine and multivitamin daily 4) Thrombocytopenia --Continue to hold heparin SQ FEN: fluids: avoid Electrolyte abnormalities: None currently; resolved issues Nutrition: Sodium controlled PPX: DVT - Heparin discontinued due to thrombocytopenia and liver dysfunction Dispo: continue monitoring Case discussed with Dr. Puneet Freed, DO - IM PGY-1 Visit type - Emergency Visit Emergency Visit: No - New Patient This patient is new to me today: No - Critical Care Critical Care patient: No
[2017-09-01 07:48] LABS: ANION GAP 8 (8-16); BLOOD UREA NITROGEN 15 mg/dL (7-18); CALCIUM 8.2 mg/dL (8.5-10.1); CHLORIDE 110 mmol/L (98-107); CO2 21 mmol/L (21-32); CREATININE 0.6 mg/dL (0.7-1.3); GLUCOSE,RANDOM 98 mg/dL (74-106); POTASSIUM 4.2 mmol/L (3.5-5.1); SODIUM 139 mmol/L (136-145)
[2017-09-01] MEDS: SPIRONOLACTONE 25 MG TABLET (FP) PO SCH (10:08)
[2017-09-01] MEDS: MULTIVITAMINS (DAILY MVI) TABLET (FP) PO SCH (10:08)
[2017-09-01] MEDS: FOLIC ACID 1 MG TABLET (FP) PO SCH (10:09)
[2017-09-01] MEDS: THIAMINE HCL 100 MG TABLET (FP) PO SCH (10:09)
--- NOTE | 2017-09-01 10:39 | PN ---
Teaching Attending Note Name of Resident: René Freed ATTENDING PHYSICIAN STATEMENT I saw and evaluated the patient. I reviewed the resident's note and discussed the case with the resident. I agree with the resident's findings and plan as documented. SUBJECTIVE: No fever or chills., No CP or SOB, no ABd pain. heaviness in scrotal area .Today he reports last drink being 4 months ago ( 3 beers) OBJECTIVE: NAD Cv: RRR Lungs: decreased breath sounds in bases Ext: no edema Abd: distended, soft, NT. + shifting dullness. liver is not percussed or palpated : enlarged scrotum, with no erythema or tenderness. R testicle felt , not left. ASSESSMENT AND PLAN: 52 y/o man with h/o Alcoholic dependence, h/o SVC thrombus ,alcoholic cirrhosis , pancreatitis , and thrombocytopenia who presented with abdominal and scrotal distention 1- Liver cirrhosis with Ascitis: - cont lasix , spironolactone and albumin infusion .I&Os are not accurately documented but lost one pound since yesterday. - it does not seem that diuresis is enough for him. - ? Transfer for TIPS vs Paracentesis ( high risk for hepatorenal syndrome ) - Hep serology is not consistent with immunity. needs a full series of hep B vaccine 2- Alcohol dependence. last drink 4 months ago 3- Thrombocytopenia: due to cirrhosis and alcohol BM suppression . stable 4- Enlarged scrotum: due to ascitis fluid leak to scrotum form b/l hernia control ascitis . scrotal support sling ordered Low salt diet , fluid restriction SCDs
--- NOTE | 2017-09-01 16:46 | PN ---
GI Progress Note Subjective: GI F/U FOR DR DIAZ PT IN NO DISTRESS NO CLINICAL CHANGE C/O SCROTAL SWELLING NO ABD PAIN NO N/F/V/S/ NO CONFUSION PT ALERT AND CONVERSANT - Objective Vital Signs: Vital Signs Temperature 98.2 F 09/01/17 14:03 Pulse Rate 59 L 09/01/17 14:03 Respiratory Rate 20 09/01/17 14:03 Blood Pressure 97/55 09/01/17 14:03 O2 Sat by Pulse Oximetry (%) 100 09/01/17 09:00 Constitutional: Calm, Other (CIRRHOTIC HABITUS MASSIVE ASCITES / SCROTAL EDEMA ABD SOFT/ MIN. DISTENTION NT TO PALPATION) Labs: CBC, BMP 09/01/17 06:30 09/01/17 06:30 INR, PTT INR 1.59 (0.82-1.09) H 09/01/17 06:30 Assessment/Plan 52M WITH ETOH CIRRHOSIS/ DECOMPENSATED DISEASSE WITH ASCITES AND SCROTAL EDEMA BEING DIURESED NO ACUTE CLINICAL DECOMPENSATION LYTES ARE STABLE ON RX AT THIS TIME F/U WT DAILY TO ASSURE PT IS LOSING WEIGHT LYTES HAVE NOT BUDGED CAN PUSH THE DIURETIC DOSES NEEDED 2GM NALT RESTRICTED DIET NO IVF MD JUDY
[2017-09-01 21:02] VITALS: BMI 26.9
[2017-09-02] MEDS: ALBUMIN HUMAN 25% 12.5 GM/50 ML VIAL IVPB SCH ×2 (06:23)
[2017-09-02] MEDS: FUROSEMIDE 40 MG/4 ML INJECTABLE VIAL IVPUSH SCH ×2 (06:25→13:40)
[2017-09-02 07:15] LABS: HEMATOCRIT 30.3 % (35.4-49); HEMOGLOBIN 10.8 GM/dL (11.7-16.9); MCHC 35.7 g/dl (32.0-35.9); MEAN CELL VOLUME 115.5 fl (80-96); MEAN PLT VOLUME 9.3 fl (7.5-11.1); PLATELET COUNT 89 K/MM3 (134-434); RBC 2.63 M/mm3 (4.00-5.60); RDW 14.7 % (11.9-15.9)
[2017-09-02 07:36] LABS: MCH 41.2 pg (25.7-33.7)
[2017-09-02 07:44] LABS: CHLORIDE 111 mmol/L (98-107); POTASSIUM 4.4 mmol/L (3.5-5.1); SODIUM 140 mmol/L (136-145)
[2017-09-02 07:50] LABS: ALBUMIN 3.1 g/dl (3.4-5.0); ALK PHOS 73 U/L (45-117); ANION GAP 8 (8-16); BILIRUBIN,TOTAL 4.2 mg/dL (0.2-1.0); BLOOD UREA NITROGEN 16 mg/dL (7-18); CO2 21 mmol/L (21-32); CREATININE 0.7 mg/dL (0.7-1.3); GLUCOSE,RANDOM 98 mg/dL (74-106); SGOT/AST 30 U/L (15-37); SGPT/ALT 17 U/L (12-78); TOT PROT 6.3 g/dl (6.4-8.2)
[2017-09-02] MEDS: FOLIC ACID 1 MG TABLET (FP) PO SCH (10:25)
[2017-09-02] MEDS: THIAMINE HCL 100 MG TABLET (FP) PO SCH (10:26)
[2017-09-02] MEDS: MULTIVITAMINS (DAILY MVI) TABLET (FP) PO SCH (10:26)
[2017-09-02] MEDS: SPIRONOLACTONE 25 MG TABLET (FP) PO SCH (10:26)
--- NOTE | 2017-09-02 17:16 | PN ---
Progress Note (short form) - Note Progress Note: Subjective: No fever or chills. NO abd pain , still with a lot of discomfort in scrotum Objective: Vital Signs: Last Vital Signs Temp Pulse Resp BP Pulse Ox 98.2 F 62 20 99/68 99 09/02/17 14:10 09/02/17 14:10 09/02/17 14:10 09/02/17 14:10 09/02/17 09:00 Laboratory Results - last 24 hr 09/02/17 09/02/17 06:30 06:30 WBC 4.0 RBC 2.63 L Hgb 10.8 L Hct 30.3 L MCV 115.5 H MCH 41.2 H MCHC 35.7 RDW 14.7 Plt Count 89 L MPV 9.3 Sodium 140 Potassium 4.4 Chloride 111 H Carbon Dioxide 21 Anion Gap 8 BUN 16 Creatinine 0.7 Creat Clearance w eGFR > 60 Random Glucose 98 Calcium 8.0 L Total Bilirubin 4.2 H AST 30 ALT 17 Alkaline Phosphatase 73 D Total Protein 6.3 L Albumin 3.1 L D I&O: Intake & Output 08/30/17 08/31/17 09/01/17 09/02/17 23:59 23:59 23:59 23:59 Intake Total 510 580 100 Output Total 1200 581 278 2070 Balance -690 - Weight 168 lb 9.6 oz 167 lb 167 lb 167 lb 12.8 oz Physical Exam: NAD Cv: RRR Lungs: decreased breath sounds in bases Ext: no edema Abd: distended, soft, NT. + shifting dullness. liver is not percussed or palpated : enlarged scrotum ( not changed ) , with no erythema or tenderness. R testicle felt , not left. ASSESSMENT AND PLAN: 52 y/o man with h/o Alcoholic dependence, h/o SVC thrombus ,alcoholic cirrhosis , pancreatitis , and thrombocytopenia who presented with abdominal and scrotal distention 1- Liver cirrhosis with Ascitis: - cont lasix , spironolactone .weight is not changing - it does not seem that diuresis is enough for him. - ? Transfer for TIPS vs Paracentesis ( high risk for hepatorenal syndrome ) - Hep serology is not consistent with immunity. needs a full series of hep B vaccine - will d/w Dr. brasher tomorrow 2- Alcohol dependence. last drink 4 months ago 3- Thrombocytopenia: due to cirrhosis and alcohol BM suppression . stable 4- Enlarged scrotum: due to ascitis fluid leak to scrotum form b/l hernia control ascitis . scrotal support Low salt diet , fluid restriction SCDs Visit type - Emergency Visit Emergency Visit: Yes ED Registration Date: 08/24/17 Care time: The patient presented to the Emergency Department on the above date and was hospitalized for further evaluation of their emergent condition. - New Patient This patient is new to me today: No - Critical Care Critical Care patient: No
[2017-09-03] MEDS: FUROSEMIDE 40 MG/4 ML INJECTABLE VIAL IVPUSH SCH ×2 (05:39→14:33)
[2017-09-03 06:40] LABS: MAGNESIUM 2.1 mg/dL (1.8-2.4); POTASSIUM 4.3 mmol/L (3.5-5.1)
[2017-09-03] MEDS: THIAMINE HCL 100 MG TABLET (FP) PO SCH (10:19)
[2017-09-03] MEDS: MULTIVITAMINS (DAILY MVI) TABLET (FP) PO SCH (10:19)
[2017-09-03] MEDS: FOLIC ACID 1 MG TABLET (FP) PO SCH (10:19)
[2017-09-03] MEDS: SPIRONOLACTONE 25 MG TABLET (FP) PO SCH (11:33)
--- NOTE | 2017-09-03 12:35 | PN ---
GI Progress Note Subjective: GI Note: Ascites and scrotal edema are refractory to diuretics despite albumin infusions. I have discussed the situation with Dr. Teixeira and her residents and advised persuing transfer to [facility] for TIPS. Will have small volume paracenteses in the interim. - Objective Vital Signs: Vital Signs Temperature 98.1 F 09/03/17 05:44 Pulse Rate 65 09/03/17 05:44 Respiratory Rate 20 09/03/17 05:44 Blood Pressure 103/56 09/03/17 05:44 O2 Sat by Pulse Oximetry (%) 99 09/02/17 21:00 Laboratory Tests 09/02/17 09/02/17 06:30 06:30 Hgb 10.8 L BUN 16 Creatinine 0.7 Total Bilirubin 4.2 H Constitutional: No Distress Eyes: Yes: Sclera Icterus Gastrointestinal Inspection: Yes: Ascites, Hernia (nontender right paraumbilical hernia) ...Auscultate: Yes: Normoactive Bowel Sounds ...Palpate: Yes: Other (nontender) Genitourinary: Yes: Scrotal Edema (large, massive) Labs: CBC, BMP 09/02/17 06:30 09/03/17 06:00 INR, PTT INR 1.59 (0.82-1.09) H 09/01/17 06:30 Problem List - Problems (1) Alcoholic cirrhosis of liver with ascites Assessment/Plan: Ascites is refractory and will need TIPs. I advise the resident staff to administer salt pour albumin for 24 hours following each paracentesis. Code(s): K70.31 - ALCOHOLIC CIRRHOSIS OF LIVER WITH ASCITES (2) Thrombocytopenia concurrent with and due to alcoholism Code(s): D69.59 - OTHER SECONDARY THROMBOCYTOPENIA; F10.20 - ALCOHOL DEPENDENCE , UNCOMPLICATED (3) Coagulopathy Code(s): D68.9 - COAGULATION DEFECT, UNSPECIFIED (4) Scrotum swelling Code(s): N50.89 - OTHER SPECIFIED DISORDERS OF THE MALE GENITAL ORGANS
--- NOTE | 2017-09-03 13:30 | PN ---
Teaching Attending Note Name of Resident: René Freed ATTENDING PHYSICIAN STATEMENT I saw and evaluated the patient. I reviewed the resident's note and discussed the case with the resident. I agree with the resident's findings and plan as documented. SUBJECTIVE: No fever or chills . No abd pain . No has heaviness in scrotal area, and discomfort . OBJECTIVE: NAD Cv: RRR Lungs: decreased breath sounds in bases Ext: no edema Abd: distended, soft, NT. + shifting dullness. : enlarged scrotum ( not changed ) , with no erythema or tenderness. R testicle felt , not left. ASSESSMENT AND PLAN: 52 y/o man with h/o Alcoholic dependence, h/o SVC thrombus ,alcoholic cirrhosis , pancreatitis , and thrombocytopenia who presented with abdominal and scrotal distention 1- Liver cirrhosis with Ascitis: refractory to diuretics - cont lasix and spironolactone - d/w Dr. brasher. willplan for 2 L fluid removal with paracentesis - will give albumin infusion after paracentesis x 4 doses - start transfer process to [facility] for TIPS - need Hep B vaccine 2- Alcohol dependence. last drink 4 months ago 3- Thrombocytopenia: due to cirrhosis and alcohol BM suppression. stable 4- Enlarged scrotum: due to ascitis fluid leak to scrotum form b/l hernia control ascitis . scrotal support Low salt diet , fluid restriction SCDs will start transfer process. this might take time
[2017-09-03] MEDS: ALBUMIN HUMAN 25% 12.5 GM/50 ML VIAL IVPB SCH ×2 (17:56→22:42)
[2017-09-03 19:49] LABS: TOTAL PROTEIN,PERITONEAL FLUID 3 gm/dL
[2017-09-03 20:10] LABS: PERITONEAL RBC 590 /mm3
--- NOTE | 2017-09-03 21:21 | PN ---
Physical Exam: SUBJECTIVE: No complaints. No events OBJECTIVE: Vital Signs Period Temp Pulse Resp BP Sys/Ellington Pulse Ox Last 24 Hr 97.5 F-99.1 F 58-72 18-20 92-108/54-60 100-100 GENERAL: NAD, awake, alert, laying in bed, oriented x3 HEENT: EOMI, USHA, icteric sclera noted, moist mucous membranes with cracked tongue LUNGS: CTA bilaterally, no wheezes, no crackles, no accessory muscle use. HEART: RRR, S1, S2 without murmur ABDOMEN: Soft, collateral veins appreciated. distended, shifting dullness present, nontender, no guarding, no asterixis, hepatomegaly could not be assessed due to distention, umbilical hernia noted. : Scrotal swelling without erythema noted EXTREMITIES: 2+ DP pulses, warm, no LLE edema. PSYCH: Normal mood, normal affect. SKIN: Warm, dry, no rashes or lesions noted Laboratory Results - last 24 hr 09/03/17 09/03/17 06:00 17:00 Potassium 4.3 Phosphorus 4.0 Magnesium 2.1 Peritoneal WBC 122 Peritoneal RBC 590 Peritoneal Tot Protein 3 Peritoneal Albumin 1 Peritoneal LDH 98 Peritoneal Glucose 111 Peritoneal Amylase 21 Active Medications Generic Name Dose Route Start Last Admin Trade Name Freq PRN Reason Stop Dose Admin Albumin Human 12.5 gm 09/03/17 17:30 09/03/17 17:56 Albumin Human 25% IVPB 09/04/17 11:31 12.5 gm Q6H ERIC Administration Folic Acid 1 mg 08/29/17 10:00 09/03/17 10:19 Folic Acid - PO 1 mg DAILY ERIC Administration Furosemide 40 mg 08/31/17 06:00 09/03/17 14:33 Lasix Injection - IVPUSH 40 mg BID@0600,1400 ERIC Administration Multivitamins/Minerals/Vitamin C 1 tab 08/26/17 10:00 09/03/17 10:19 Tab-A-Vit - PO 1 tab DAILY ERIC Administration Spironolactone 100 mg 09/03/17 10:15 09/03/17 11:33 Aldactone - PO 100 mg DAILY ERIC Administration Thiamine HCl 100 mg 08/25/17 10:00 09/03/17 10:19 Vitamin B1 - PO 100 mg DAILY ERIC Administration ASSESSMENT/PLAN: 1) Decompensated alcoholic cirrhosis w/ ascites --Dr. Love on board --Paracentesis today; 2L withdrawn with Albumin added to avoid hepatorenal syndrome --Will have to speak to Dr. Masha Aguilar at [facility] for better recommendations for either transfer vs. TIPS --Continue Aldactone 100mg qdaily --Lasix 40mg IVP BID --Hold diuretics for SBP <95, DBP <60 --Continue to elevate scrotum and keep in T-david for comfort --Ordered scrotal support --Triple phase CT shows no evidence of hepatic masses 2) Hyperbilirubinemia --See above 3) H/o ETOH abuse --No active withdrawal --Continue folic acid, thiamine and multivitamin daily 4) Thrombocytopenia --Continue to hold heparin SQ FEN: fluids: avoid Electrolyte abnormalities: None currently; resolved issues Nutrition: Sodium controlled PPX: DVT - Heparin discontinued due to thrombocytopenia and liver dysfunction Dispo: continue monitoring Case discussed with Dr. Puneet Freed, DO - IM PGY-1 Visit type - Emergency Visit Emergency Visit: No - New Patient This patient is new to me today: No - Critical Care Critical Care patient: No
[2017-09-03 23:30] LABS: PERITONEAL FLUID LYMPHOCYTE 12 %; PERITONEAL FLUID MONOCYTE 5 %; PERITONEAL FLUID NEUTROPHIL 83 %
[2017-09-04] MEDS: ALBUMIN HUMAN 25% 12.5 GM/50 ML VIAL IVPB SCH ×2 (05:24→11:12)
[2017-09-04] MEDS: FUROSEMIDE 40 MG/4 ML INJECTABLE VIAL IVPUSH SCH ×2 (06:42→14:21)
[2017-09-04 07:00] LABS: HEMATOCRIT 28.7 % (35.4-49); HEMOGLOBIN 10.5 GM/dL (11.7-16.9); MCHC 36.5 g/dl (32.0-35.9); MEAN CELL VOLUME 113.2 fl (80-96); MEAN PLT VOLUME 8.7 fl (7.5-11.1); PLATELET COUNT 93 K/MM3 (134-434); RBC 2.53 M/mm3 (4.00-5.60); RDW 13.8 % (11.9-15.9); WHITE BLOOD COUNT 4.3 K/mm3 (4.0-10.0)
[2017-09-04 07:02] LABS: MCH 41.4 pg (25.7-33.7)
[2017-09-04 07:17] LABS: CHLORIDE 108 mmol/L (98-107); POTASSIUM 4.1 mmol/L (3.5-5.1); SODIUM 138 mmol/L (136-145)
[2017-09-04 07:21] LABS: ANION GAP 8 (8-16); BLOOD UREA NITROGEN 17 mg/dL (7-18); CALCIUM 8.9 mg/dL (8.5-10.1); CO2 22 mmol/L (21-32); CREATININE 0.6 mg/dL (0.7-1.3); GLUCOSE,RANDOM 92 mg/dL (74-106); MAGNESIUM 2.3 mg/dL (1.8-2.4); PHOSPHOROUS 4.2 mg/dL (2.5-4.9)
[2017-09-04] MEDS: FOLIC ACID 1 MG TABLET (FP) PO SCH (10:56)
[2017-09-04] MEDS: MULTIVITAMINS (DAILY MVI) TABLET (FP) PO SCH (10:57)
[2017-09-04] MEDS: THIAMINE HCL 100 MG TABLET (FP) PO SCH (10:57)
[2017-09-04] MEDS: SPIRONOLACTONE 25 MG TABLET (FP) PO SCH (12:27)
[2017-09-04 14:20] VITALS: PULSE 68
--- NOTE | 2017-09-04 17:51 | PN ---
Teaching Attending Note Name of Resident: René Freed ATTENDING PHYSICIAN STATEMENT I saw and evaluated the patient. I reviewed the resident's note and discussed the case with the resident. I agree with the resident's findings and plan as documented. SUBJECTIVE: No fever or chills. scrotal discomfort OBJECTIVE: NAD Cv: RRR Lungs: decreased breath sounds in bases Ext: no edema Abd: distended, soft, NT. + shifting dullness. : enlarged scrotum ( not changed ) , with no erythema or tenderness. R testicle felt , not left. ASSESSMENT AND PLAN: 52 y/o man with h/o Alcoholic dependence, h/o SVC thrombus ,alcoholic cirrhosis , pancreatitis , and thrombocytopenia who presented with abdominal and scrotal distention 1- Liver cirrhosis with Ascitis: refractory to diuretics - cont lasix and spironolactone - s/p removal of 2 L of ascitic fluid through paracentesis - transfer process to [facility] for TIPS - need Hep B vaccine series 2- Alcohol dependence. last drink 4 months ago 3- Thrombocytopenia: due to cirrhosis and alcohol BM suppression. stable 4- Enlarged scrotum: due to ascitis fluid leak to scrotum form b/l hernia control ascitis . scrotal support Low salt diet , fluid restriction SCDs Tx to [facility], accepted.
--- NOTE | 2017-09-04 18:13 | DS ---
Physical Exam: SUBJECTIVE: No acute events, no new complaints. OBJECTIVE: Vital Signs Period Temp Pulse Resp BP Sys/Ellington Pulse Ox Last 24 Hr 98.2 F-99.1 F 60-68 18-20 91-100/48-63 99-100 PHYSICAL EXAM GENERAL: NAD, awake, alert, laying in bed, oriented x3 HEENT: EOMI, USHA, icteric sclera noted, moist mucous membranes with cracked tongue LUNGS: CTA bilaterally, no wheezes, no crackles, no accessory muscle use. HEART: RRR, S1, S2 without murmur ABDOMEN: Soft, collateral veins appreciated. distended, shifting dullness present, nontender, no guarding, no asterixis, hepatomegaly could not be assessed due to distention, umbilical hernia noted. : Scrotal swelling without erythema noted EXTREMITIES: 2+ DP pulses, warm, no LLE edema. PSYCH: Normal mood, normal affect. SKIN: Warm, dry, no rashes or lesions noted LABS Laboratory Results - last 24 hr 09/03/17 09/04/17 09/04/17 17:00 05:50 05:50 WBC 4.3 RBC 2.53 L Hgb 10.5 L Hct 28.7 L MCV 113.2 H MCH 41.4 H MCHC 36.5 H RDW 13.8 Plt Count 93 L MPV 8.7 Sodium 138 Potassium 4.1 Chloride 108 H Carbon Dioxide 22 Anion Gap 8 BUN 17 Creatinine 0.6 L Random Glucose 92 Calcium 8.9 Phosphorus 4.2 Magnesium 2.3 Peritoneal WBC 122 Peritoneal RBC 590 Periton Neutrophils 83 Periton Lymphocytes 12 Peritoneal Monocytes 5 Peritoneal Tot Protein 3 Peritoneal Albumin 1 Peritoneal LDH 98 Peritoneal Glucose 111 Peritoneal Amylase 21 HOSPITAL COURSE: Date of Admission:08/24/17 Date of Discharge: 09/04/17 Pt was admitted for one week of increasing pain, scrotal swelling, and abdominal distention found to have decompensated liver failure. Pt had diagnostic paracentesis performed in the ED which showed a SAAG of 1.5 consistent with portal HTN and no evidence of SBP. On initial presentation his MELD score was 21, however he reported having his last drink within the past month. Pt was then placed onto Lasix 40mg IVP and Aldactone 50mg PO qDaily with a sodium restriction of 88mmol/day. Unfortunately, pt developed hypokalemia and hypotension as the result of Lasix and had this discontinued with a consequential increase in Aldactone 100mg PO Qdaily. He was evaluated by Gastroenterology at this time who recommended a Triple phase CT scan of his abdomen, and a therapeutic paracentesis once his acute phase was initially controlled. Unfortunately, pt was at high risk for heptorenal syndrome and the decision was made to continue diuresis for a response. Pt was unresponsive to Aldactone 100mg alone and so LAsix 40mg IVP was added with salt-poor Albumin q12h. Again his ascites did not respond and so albumin was increased to q6h with Lasix increased to 40mg BID IVP. Eventually due to his lack of response to diuresis, pt had therapeutic paracentesis performed by interventional radiology who removed 2L with addition of Albumin to mitigate massive fluid shifts. At this time, Dr. Aguilar was contacted at [facility] due to lack of response of diuresis and paracentesis for a possible TIPS procedure. Today he is being transferred to [facility]'s hepatology unit in stable condition. Of note in pt's hospital stay: Pt developed thrombocytopenia with minimum of 89, 000 and heparin SQ (DVT ppx) was discontinued with resulting increase and stabilization to 93,000. Additional Imagin08/29/[address] scan: Small b/l pleural effusions and mild bibasilar atelectasis. Massive ascites. Small and irregular liver, splenomegaly , and R retroperitoneal varices. No hepatic mass evidence. B/L inguinal hernias with large L-sided hydrocele. 6mm nonobstructing calculus w/i lower pole of the L kidney Fluid studies (per pathology report): No malignant cells seen Minutes to complete discharge: 35 Discharge Summary Reason For Visit: ASCITES HYPOKALEMIA Current Active Problems Ascites (Acute) Coagulopathy (Acute) Scrotum swelling (Acute) Alcoholic cirrhosis of liver with ascites (Chronic) Thrombocytopenia concurrent with and due to alcoholism (Chronic) Condition: Stable - Instructions Diet, Activity, Other Instructions: You were seen here due to your massive abdominal ascites due to decompensated alcoholic liver disease. You were trialed on diuretics (Aldactone 100mg qdaily and Lasix 40mg IV BID) alongside of IV albumin (last dose 11:12 09/04) which did not alleviate your scrotal swelling and ascites. In addition we performed a paracentesis which only lianne out 2L due to your risk of hepatorenal syndrome. We are transferring you to [facility] under Dr. Aguilar's care who will guide your treatment and will recommend anything to do once discharged. You are being transported with a CD of your abdominal CT scan in case [place] needs to review the images from earlier in your hospital course. MEDICATIONS: Please follow the advise of Dr. Aguilar and her team in regards to medication changes. Please refrain from drinking alcohol as this can worsen your liver failure, put other organs at risk due to your liver failure, and keep you from getting a transplant You need Hepatitis B vaccine series Referrals: Masha Aguilar [Non Staff, Medical] - Mabel Cooper [Primary Care Provider] - Lashae Love MD [Staff Physician] - Disposition: TRANSFER ACUTE CARE/OTHER HOSP - Home Medications Comprehensive Discharge Medication List: Ambulatory Orders Albumin Human [Albumin Human 25%] 12.5 gm IVPB Q6H vial 09/04/17 Folic Acid - 1 mg PO DAILY tablet 09/04/17 Furosemide Injection [Lasix Injection -] 40 mg IVPUSH BID@0600,1400 vial Multivitamins [Multivit ([facility] Formulary)] 1 tab PO DAILY tab 09/04/17 Spironolactone [Aldactone -] 100 mg PO DAILY tablet 09/04/17 Thiamine HCl [Vitamin B1 -] 100 mg PO DAILY tablet 09/04/17 This patient is new to me today: No Emergency Visit: No Critical Care patient: No - Discharge Referral Referred to [facility] Med P.C.: No
[2017-09-04 20:14] VITALS: BP 94/58; TEMP 98
--- NOTE | 2017-09-05 10:06 | PATH ---
Cytology Non-Gynecological Report Patient Name: KEISHA SOLIS [facility]. Rec. #: [id number] /Age/Gender: 1965 (Age: 52) / M Account: [id number] Location: 4 TELEMETRY U Taken: 09/03/2017 Received: 09/04/2017 Reported: 09/05/2017 Physicians: Geraldo Escobedo M.D. Specimen(s) Received A: RIGHT PARACENTESIS FLUID B: RIGHT PARACENTESIS FLUID Clinical History Ascites, cirrhosis Final Diagnosis A & B. ABDOMINAL FLUID, RIGHT, PARACENTESIS: SATISFACTORY FOR EVALUATION. NO MALIGNANT CELLS IDENTIFIED. MESOTHELIAL CELLS, RARE NEUTROPHILS AND RARE LYMPHOCYTES PRESENT. Comment: Recommend correlation with clinical findings and follow up as clinically indicated. Electronically Signed Janny Dodge M.D. Gross Description A. Approximately 30 cc of yellow fluid received fixed in 50% alcohol. Two cytofunnels and one cellblock prepared. B. Approximately 2000 cc of yellow fluid received fresh. Two cytofunnels and one cellblock prepared.
== END 2017-09-04 19:53 | disposition short-term general hospital (02) | DRG 264 ==
LOC: JER 14:47 → JERBED 20:32 → J4W 22:56 → JERBED 08-31 09:22 → J4W 08-31 09:23
PROVIDERS: ADMIT Internal Medicine; ATTEND Internal Medicine
PROC: 0W9G3ZX Drainage of Peritoneal Cavity, Percutaneous Approach, Diagnostic (ICD-10-PCS; principal; 2017-09-03)
DX: K70.31 Alcoholic cirrhosis of liver with ascites (principal); F10.20 Alcohol dependence, uncomplicated; N50.89 Other specified disorders of the male genital organs; E80.6 Other disorders of bilirubin metabolism; E87.6 Hypokalemia; D75.89 Other specified diseases of blood and blood-forming organs; K40.20 Bilateral inguinal hernia, without obstruction or gangrene, not specified as recurrent; F17.210 Nicotine dependence, cigarettes, uncomplicated; D69.6 Thrombocytopenia, unspecified; D68.9 Coagulation defect, unspecified; E87.1 Hypo-osmolality and hyponatremia; J90 Pleural effusion, not elsewhere classified; R16.1 Splenomegaly, not elsewhere classified; J98.11 Atelectasis
CPT/HCPCS: 36415; 74178-TC; 76942-TC; 80048; 80053; 80074; 81003; 82042; 82105; 82150; 82550; 82945; 83615; 83690; 83735; 83880; 84100; 84132; 84157; 84484; 85025; 85027; 85610; 85730; 87070; 87075; 87102; 87116; 87205; 87206; 87210; 88108; 88305-TC; 89051; 93005; 93010; 99285-25; J1644; P9047